=== PATIENT | female | born 1975 | race Caucasian/White ===

== ENCOUNTER → 2017-12-03 08:14 | Outpatient (CLI) | payer OTHER, SELFPAY ==
[2017-12-03 10:25] LABS: Absolute Lymphocyte Count 2.03 X10^3/ul (0.83-4.51); Absolute Neutrophil Count 4.5 X10^3/uL (2.0-7.7); Basophil# 0.04 X10^3/uL; Basophil% 0.6 % (0-1); Eosinophils% 1.4 % (0-5); Hematocrit 43.4 % (37-47); Hemoglobin 14.4 g/dl (12.0-15.0); Lymphocyte # 2.03 X10^3/ul (4.0); Lymphocyte % 28.6 % (19-41); Mean Corp Hgb Conc 33.2 g/gl (32-36); Mean Corpuscular Volume 99.3 fL (81-99); Mean Platelet Vol. 10.1 fl (6.2-12.0); Monocyte# 0.41 X10^3/uL; Monocyte% 5.8 % (0-10); Neutrophil # 4.52 X10^3/uL (2.7-7.7); Neutrophil % 63.5 % (47-70); Platelet Count 215 K/mm3 (150-450); RBC Distribution Width CV 13.1 % (11.6-14.6); RBC Distribution Width SD 47.2 fl (35.1-43.9); Red Blood Count 4.37 M/mm3 (4.2-5.4); White Blood Count 7.1 K/mm3 (4.4-11.0)
[2017-12-03 10:37] LABS: POSITIVE COUNT NO; POSITIVE DIFFERENTIAL NO; POSITIVE MORPHOLOGY NO
[2017-12-03 10:46] LABS: AST(SGOT) 13 U/L (15-37); Alanine Aminotransfer ALT/SGPT 19 U/L (13-56); Albumin, Serum 3.9 g/dL (3.2-5.0); Alkaline Phosphatase 51 U/L (45-117); Anion Gap 7 (5-15); BUN 7 mg/dL (7-18); BUN/Creat Ratio 8.2 RATIO (10-20); Bilirubin, Direct 0.09 mg/dL (0.00-0.30); Calcium,Total 8.9 mg/dL (8.5-10.1); Chloride 109 mmol/L (98-107); Creatinine, Serum 0.86 mg/dL (0.55-1.02); EST Glomerular Filtration Rate 78 mL/min (>60); Est Glom Filt Rate - Afr Amer 94 mL/min (>60); Globulin 2.9 g/dL (2.2-4.2); Glucose 73 mg/dL (74-106); Potassium 3.8 mmol/L (3.5-5.1); Protein, Total 6.8 g/dL (6.4-8.2); Sodium Level 143 mmol/L (136-145)
[2017-12-08 15:30] LABS: QNTFERON TB Ag Minus Nil Value < 0 IU/mL (.); QNTFERON TB Ag Value 0.09 IU/mL (.); QNTFERON TB Mitogen Value > 10.00 IU/mL (.); QNTFERON TB Nil Value 0.11 IU/mL (.)
[2017-12-09 10:27] LABS: Hep B Surface Antibodies Non Reactive (.); Hep C Antibodies <0.1 s/co ratio (0.0-0.9); QNTIFERON TB Gold Negative (Negative)
== END ==
DX: L40.0 Psoriasis vulgaris (principal); R23.3 Spontaneous ecchymoses; Z79.899 Other long term (current) drug therapy
CPT/HCPCS: 36415; 80048; 80076; 85025; 86480; 86706; 86803

== ENCOUNTER → 2018-09-09 09:23 | Outpatient (CLI) | payer OTHER, SELFPAY ==
[2018-09-09 09:57] LABS: Absolute Lymphocyte Count 1.69 X10^3/ul (0.83-4.51); Absolute Neutrophil Count 5.4 X10^3/uL (2.0-7.7); Basophil# 0.02 X10^3/uL; Basophil% 0.3 % (0-1); Eosinophils% 1.3 % (0-5); Hemoglobin 14.5 g/dl (12.0-15.0); Lymphocyte # 1.69 X10^3/ul (4.0); Lymphocyte % 21.9 % (19-41); Mean Corp Hgb Conc 34.5 g/gl (32-36); Mean Corpuscular Hgb 33.6 pg (27.0-32.0); Mean Corpuscular Volume 97.4 fL (81-99); Mean Platelet Vol. 9.2 fl (6.2-12.0); Monocyte# 0.44 X10^3/uL; Monocyte% 5.7 % (0-10); Neutrophil # 5.44 X10^3/uL (2.7-7.7); Neutrophil % 70.5 % (47-70); Platelet Count 175 K/mm3 (150-450); RBC Distribution Width CV 12.7 % (11.6-14.6); RBC Distribution Width SD 45.9 fl (35.1-43.9); Red Blood Count 4.31 M/mm3 (4.2-5.4); White Blood Count 7.7 K/mm3 (4.4-11.0)
[2018-09-09 09:58] LABS: POSITIVE COUNT NO; POSITIVE DIFFERENTIAL NO
[2018-09-09 09:59] LABS: POSITIVE MORPHOLOGY NO
[2018-09-09 10:16] LABS: AST(SGOT) 48 U/L (15-37); Alanine Aminotransfer ALT/SGPT 51 U/L (13-56); Alkaline Phosphatase 95 U/L (45-117); Anion Gap 6 (5-15); BUN 9 mg/dL (7-18); BUN/Creat Ratio 13.5 RATIO (10-20); Bilirubin, Direct 0.15 mg/dL (0.00-0.30); Calcium,Total 8.7 mg/dL (8.5-10.1); Chloride 110 mmol/L (98-107); Creatinine, Serum 0.67 mg/dL (0.55-1.02); EST Glomerular Filtration Rate 103 mL/min (>60); Est Glom Filt Rate - Afr Amer 125 mL/min (>60); Globulin 2.9 g/dL (2.2-4.2); Glucose 71 mg/dL (74-106); Potassium 3.8 mmol/L (3.5-5.1); Protein, Total 6.9 g/dL (6.4-8.2); Sodium Level 142 mmol/L (136-145)
[2018-09-12 03:07] LABS: HEPATITIS B SURFACE AG Negative (Negative); QNTFERON TB Mitogen Value > 10.00 IU/mL (.); QNTFERON TB Nil Value 0.11 IU/mL (.); QNTFERON TB2+ Ag Value 0.07 IU/mL (.)
[2018-09-12 14:34] LABS: Hep B Surface Antibodies Non Reactive (.); Hep C Antibodies <0.1 s/co ratio (0.0-0.9); Hepatitis B Core Ab Total Negative (Negative); QNTIFERON TB Positive Criteria Negative (Negative)
== END ==
DX: L40.0 Psoriasis vulgaris (principal); Z79.899 Other long term (current) drug therapy
CPT/HCPCS: 36415; 80048; 80076; 85025; 86480; 86704; 86706; 86803; 87340

== ENCOUNTER 2018-12-17 12:05 | Emergency (ER) | payer OTHER, SELFPAY ==
[2018-12-17 12:07] VITALS: BP 109/63; PULSE 63; RESP 18; TEMP 36.6; O2SAT 98; BMI 21.2
--- NOTE | 2018-12-17 12:58 | EKG12_ITS ---
Test Reason : GEN ILLNESS Blood Pressure : / mmHG Vent. Rate : 050 BPM Atrial Rate : 050 BPM P-R Int : 128 ms QRS Dur : 074 ms QT Int : 454 ms P-R-T Axes : 059 061 058 degrees QTc Int : 413 ms Sinus bradycardia Otherwise normal ECG Confirmed by BASILIO QUINTERO, HETAL ([id number]), writer editor LISA AN ([id number]) on 12/18/2018 12:10:42 PM Referred By: ROSMERY Confirmed By:HETAL RICHMOND MD
--- NOTE | 2018-12-17 12:59 | ED.DCSUM_ITS ---
History of Present Illness Chief Complaint: General Illness Detail of Chief Complaint: Swelling Informant: Patient, Family Onset: Weeks - 1 Context: Gradual Onset Timing: Continuous Quality: Swelling Location: Hands, feet, tongue, face Current Severity: Moderate Maximum Severity: Moderate Worsened by: Unknown Relieved by: Unknown, nothing Associated Symptoms: None Narrative: Patient presents initially very frustrated, saying that this is the third ER she has been to for this problem. She states she has had swollen fingers, as well as areas on her feet close to her ankles, and then yesterday started having some involvement of her tongue and face. She has no trouble breathing or swallowing, other than chronic dyspnea related to her COPD which she states is no worse than usual. She states that due to the swelling in her fingers, she cut her rings off today to keep them from strangling her circulation. She has psoriasis, and recently was started on Stelara, she had the initial injection about 6 weeks ago, and the second injection 1 week ago just prior to the onset of the symptoms. She had no side effects after the initial injection. She discussed with her doctor and pharmacist and they do not think she is having side effects or a reaction to the Stelara at all. She has no history of any heart problems or liver problems. She has had arthritis/arthralgias in her elbows, ankles, knuckles in the past but never diagnosed with psoriatic arthritis. She is on no other medications. She denies any fevers, lightheadedness, or other systemic symptoms. She is very frustrated and wants answers which she has not had at the other 2 emergency departments. - Past Medical History (1) COPD (chronic obstructive pulmonary disease) Status: Chronic (2) Psoriasis Status: Chronic Past Medical History - Allergies and Home Meds Allergies/Adverse Reactions: Allergies acetaminophen [From Vicodin] Adverse Reaction (Verified 12/17/18 12:07) Other BLURRY VISION codeine Adverse Reaction (Verified 12/17/18 12:07) Other HYPES HER UP hydrocodone [From Vicodin] Adverse Reaction (Verified 12/17/18 12:07) Other BLURRY VISION Primary Care Physician: Care Physician,No Primary [Primary Care Provider] - Smoking Status: Former smoker - Just recently quit Drugs: None Review of Systems General: Denies: Chills, Fever, Sweats Eyes: Denies: Visual changes - bilaterally, Diplopia ENT: Denies: Rhinorrhea, Sore throat Cardiovascular: Denies: Chest pain, Palpitations Respiratory: Reports: Dyspnea - Chronic related to COPD, not present today, Cough - Chronic, unchanged. Denies: Sputum, Dyspnea on exertion, Orthopnea Gastrointestinal: Denies: Abdominal pain, Nausea, Vomiting, Diarrhea, Melena, Hematochezia Genitourinary: Denies: Dysuria, Hematuria, Frequency Musculoskeletal: Reports: Swelling. Denies: Back pain, Extremity Pain Skin: Denies: Rash, Wounds Neurological: Denies: Headache, Weakness, Numbness Physical Exam Vital Signs/Narrative: Vital Signs Temp Pulse Resp BP Pulse Ox 12/17/18 12:07 97.9 F 63 18 109/63 98 Inital Vital Signs reviewed: Yes General: Well nourished, Well developed, No Acute Distress Head: Normocephalic, Atraumatic Eyes: Perrl, EOMI ENT: Moist mucous membranes, No rhinorrhea, - - No stridor or hoarseness. Normal-appearing tongue and oral mucosa, no trismus. No hot potato voice. Speaking normally while lying supine. Neck: Supple, Nontender, No lymphadenopathy, No JVD Cardiovascular: Regular rate, Regular rhythm, No murmurs, Normal S1, Normal S2 Respiratory: No distress, CTA bilaterally, Chest nontender Abdomen: Soft, Nontender, Nondistended, Normal bowel sounds Back: Nontender, Normal Inspection Extremities: Nontender, No edema - I see no objective edema. Her tongue is normal. It does not appear asymmetric but she states the swelling feels like it is only on one side. She sticks it out in the midline. , - - No Heberden's or Cherie's nodes. Skin: Normal color, No rash, No Trauma Neurological: Alert, Oriented x3, Cranial nerves II-XII grossly intact, Normal Strength, Normal Sensation Psychological: Normal affect, Normal Mood Diagnostic/Tx/Re-eval Laboratory Tests 12/17/18 12/17/18 12/17/18 Range/Units 13:15 13:15 13:15 WBC (4.4-11.0) K/mm3 RBC (4.2-5.4) M/mm3 Hgb (12.0-15.0) g/dl Hct (37-47) % MCV (81-99) fL MCH (27.0-32.0) pg MCHC (32-36) g/gl RDW (11.6-14.6) % RDW Differential (35.1-43.9) fl Plt Count (150-450) K/mm3 MPV (6.2-12.0) fl Immature Gran % (Auto) (0.0-0.9) % Neut % (Auto) (47-70) % Lymph % (Auto) (19-41) % Sharkey % (Auto) (0-10) % Eos % (Auto) (0-5) % Baso % (Auto) (0-1) % Absolute Neuts (auto) (2.0-7.7) X10^3/uL Absolute Lymphs (auto) (0.83-4.51) X10^3/ul Total Counted PT 12.5 (11.7-14.9) SECONDS INR 1.0 Sodium 139 (136-145) mmol/L Potassium 4.0 (3.5-5.1) mmol/L Chloride 105 (98-107) mmol/L Carbon Dioxide 28.0 (21.0-32.0) mmol/L Anion Gap 6 (5-15) BUN 11 (7-18) mg/dL Creatinine 0.76 (0.55-1.02) mg/dL Estim Creat Clear Calc 80.58 ml/min Est GFR (MDRD) Af Amer 109 (>60) mL/min Est GFR (MDRD) Non-Af 90 (>60) mL/min BUN/Creatinine Ratio 14.6 (10-20) RATIO Glucose 79 (74-106) mg/dL Calcium 9.3 (8.5-10.1) mg/dL Total Bilirubin 1.00 (0.20-1.00) mg/dL AST 25 (15-37) U/L ALT 40 (13-56) U/L Alkaline Phosphatase 86 (45-117) U/L Total Protein 7.1 (6.4-8.2) g/dL Albumin 4.2 (3.2-5.0) g/dL Globulin 2.9 (2.2-4.2) g/dL Albumin/Globulin Ratio 1.4 (0.9-2.4) RATIO TSH 1.88 (0.358-3.74) uIU/mL Urine Color Yellow (Yellow) Urine Clarity Clear (Clear) Urine pH 7.0 (5.0 - 8.0) Ur Specific [place] 1.005 (1.002-1.030) Urine Protein Negative (Negative) mg/dl Urine Glucose (UA) Normal (Normal) mg/dl Urine Ketones Negative (Negative) mg/dl Urine Occult Blood Negative (Negative) /ul Urine Nitrite Negative (Negative) Urine Bilirubin Negative (Negative) mg/dL Urine Urobilinogen Normal (Normal) mg/dl Ur Leukocyte Esterase Negative (Negative) /ul Urine RBC 0 SEEN (0-5) /hpf Urine WBC 0 SEEN (0-5) /hpf Ur Squamous Epith Cells 0 SEEN (5-10) /hpf Urine Bacteria 0 SEEN (None Seen) /hpf Urine Mucus 0 SEEN (<or=2+) /hpf 12/17/18 Range/Units 13:15 WBC 8.4 (4.4-11.0) K/mm3 RBC 4.28 (4.2-5.4) M/mm3 Hgb 14.1 (12.0-15.0) g/dl Hct 40.9 (37-47) % MCV 95.6 (81-99) fL MCH 32.9 H (27.0-32.0) pg MCHC 34.5 (32-36) g/gl RDW 11.8 (11.6-14.6) % RDW Differential 40.6 (35.1-43.9) fl Plt Count 222 (150-450) K/mm3 MPV 9.2 (6.2-12.0) fl Immature Gran % (Auto) 0.200 (0.0-0.9) % Neut % (Auto) 58.0 (47-70) % Lymph % (Auto) 31.6 (19-41) % Sharkey % (Auto) 7.7 (0-10) % Eos % (Auto) 2.0 (0-5) % Baso % (Auto) 0.5 (0-1) % Absolute Neuts (auto) 4.9 (2.0-7.7) X10^3/uL Absolute Lymphs (auto) 2.67 (0.83-4.51) X10^3/ul Total Counted Not Reportable PT (11.7-14.9) SECONDS INR Sodium (136-145) mmol/L Potassium (3.5-5.1) mmol/L Chloride (98-107) mmol/L Carbon Dioxide (21.0-32.0) mmol/L Anion Gap (5-15) BUN (7-18) mg/dL Creatinine (0.55-1.02) mg/dL Estim Creat Clear Calc ml/min Est GFR (MDRD) Af Amer (>60) mL/min Est GFR (MDRD) Non-Af (>60) mL/min BUN/Creatinine Ratio (10-20) RATIO Glucose (74-106) mg/dL Calcium (8.5-10.1) mg/dL Total Bilirubin (0.20-1.00) mg/dL AST (15-37) U/L ALT (13-56) U/L Alkaline Phosphatase (45-117) U/L Total Protein (6.4-8.2) g/dL Albumin (3.2-5.0) g/dL Globulin (2.2-4.2) g/dL Albumin/Globulin Ratio (0.9-2.4) RATIO TSH (0.358-3.74) uIU/mL Urine Color (Yellow) Urine Clarity (Clear) Urine pH (5.0 - 8.0) Ur Specific [place] (1.002-1.030) Urine Protein (Negative) mg/dl Urine Glucose (UA) (Normal) mg/dl Urine Ketones (Negative) mg/dl Urine Occult Blood (Negative) /ul Urine Nitrite (Negative) Urine Bilirubin (Negative) mg/dL Urine Urobilinogen (Normal) mg/dl Ur Leukocyte Esterase (Negative) /ul Urine RBC (0-5) /hpf Urine WBC (0-5) /hpf Ur Squamous Epith Cells (5-10) /hpf Urine Bacteria (None Seen) /hpf Urine Mucus (<or=2+) /hpf - Medical Decision Making Liver enzymes, renal function, all normal. No proteinuria. TSH normal. EKG normal and lungs clear with no JVD or objective pedal edema. I reassured the patient with regards to her heart, liver, kidneys at this time. I wonder if she is having swelling at joints in relation to some type of rheumatologic issue. She certainly is not anaphylactic. There is no objective tongue edema, if it gets worse I recommended she come immediately to the emergency department. However right now she is in no life-threatening scenario with regards to those symptoms. I discussed trying a short course of prednisone which will be more likely to help then to cause more swelling since we will limit it to 5 days total. She is amenable to that and following up. ED Disposition - Plan for ED Patient: Disposition: Home or Assisted Living Diagnosis: Arthralgia, Swelling Instructions: What Is Arthritis?, METHYLPREDNISOLONE, Oral Prescriptions: predniSONE tablet 40 mg PO DAILY #10 tab Prescription Printed Referrals: Doctor,Your [STAFF PHYSICIAN] -
[2018-12-17 13:25] LABS: Absolute Lymphocyte Count 2.67 X10^3/ul (0.83-4.51); Absolute Neutrophil Count 4.9 X10^3/uL (2.0-7.7); Bacteria 0 SEEN /hpf (None Seen); Basophil# 0.04 X10^3/uL; Basophil% 0.5 % (0-1); Eosinophil# 0.17 X10^3/uL; Hematocrit 40.9 % (37-47); Hemoglobin 14.1 g/dl (12.0-15.0); Lymphocyte # 2.67 X10^3/ul (4.0); Lymphocyte % 31.6 % (19-41); Mean Corp Hgb Conc 34.5 g/gl (32-36); Mean Corpuscular Hgb 32.9 pg (27.0-32.0); Mean Corpuscular Volume 95.6 fL (81-99); Mean Platelet Vol. 9.2 fl (6.2-12.0); Monocyte# 0.65 X10^3/uL; Monocyte% 7.7 % (0-10); Mucous, Urine 0 SEEN /hpf (<or=2+); Neutrophil # 4.89 X10^3/uL (2.7-7.7); Platelet Count 222 K/mm3 (150-450); RBC Distribution Width CV 11.8 % (11.6-14.6); RBC Distribution Width SD 40.6 fl (35.1-43.9); Red Blood Cells-Urine 0 SEEN /hpf (0-5); Red Blood Count 4.28 M/mm3 (4.2-5.4); Squamous Epithelial Cells - UA 0 SEEN /hpf (5-10); White Blood Cells 0 SEEN /hpf (0-5); White Blood Count 8.4 K/mm3 (4.4-11.0)
[2018-12-17 13:26] LABS: Color, Urine Yellow (Yellow); Glucose, Dipstick Normal (Normal); Ketone-Dipstick Negative (Negative); Leukocyte Esterase-Dipstick Negative /ul (Negative); Nitrite-Dipstick Negative (Negative); Occult Blood-Urine Negative /ul (Negative); Protein-Dipstick Negative (Negative); Specific Gravity, Urine 1.005 (1.002-1.030); Urine Bilirubin Dipstick Negative (Negative); Urine Clarity Clear (Clear); Urine Urobilinogen Normal (Normal)
[2018-12-17 13:29] LABS: POSITIVE COUNT NO; POSITIVE DIFFERENTIAL NO; POSITIVE MORPHOLOGY NO
[2018-12-17 13:35] LABS: Prothrombin Time (Protime)PT. 12.5 SECONDS (11.7-14.9)
[2018-12-17 13:53] LABS: ALB/GLOB Ratio 1.4 RATIO (0.9-2.4); AST(SGOT) 25 U/L (15-37); Alanine Aminotransfer ALT/SGPT 40 U/L (13-56); Albumin, Serum 4.2 g/dL (3.2-5.0); Alkaline Phosphatase 86 U/L (45-117); Anion Gap 6 (5-15); BUN 11 mg/dL (7-18); BUN/Creat Ratio 14.6 RATIO (10-20); Calcium,Total 9.3 mg/dL (8.5-10.1); Chloride 105 mmol/L (98-107); Creatinine, Serum 0.76 mg/dL (0.55-1.02); EST Glomerular Filtration Rate 90 mL/min (>60); Est Glom Filt Rate - Afr Amer 109 mL/min (>60); Estimated Creatinine Clearance 80.58 ml/min; Globulin 2.9 g/dL (2.2-4.2); Glucose 79 mg/dL (74-106); Protein, Total 7.1 g/dL (6.4-8.2); Sodium Level 139 mmol/L (136-145); Thyroid Stim Hormone (TSH) 1.88 uIU/mL (0.358-3.74)
--- NOTE | 2018-12-17 14:14 | ED.DEP ---
ED Disposition - Plan for ED Patient: Disposition: Home or Assisted Living Diagnosis: Arthralgia, Swelling Instructions: What Is Arthritis?, METHYLPREDNISOLONE, Oral Prescriptions: predniSONE tablet 40 mg PO DAILY #10 tab Prescription Printed Referrals: Socrates Valiente MD [STAFF PHYSICIAN] - (call for appt)
[2018-12-17 14:19] VITALS: BP 94/60; PULSE 57; RESP 16; O2SAT 99
== END 2018-12-17 14:20 | disposition home or self-care (01) ==
PROVIDERS: Emergency Provider Emergency Medicine
DX: M25.50 Pain in unspecified joint (principal); M79.89 Other specified soft tissue disorders; Z87.891 Personal history of nicotine dependence; Z88.5 Allergy status to narcotic agent; J44.9 Chronic obstructive pulmonary disease, unspecified; L40.9 Psoriasis, unspecified
CPT/HCPCS: 36415; 80053; 81001; 84443; 85025; 85610; 93005; 99282

== ENCOUNTER → 2019-04-26 14:18 | Outpatient (CLI) | payer OTHER, SELFPAY ==
--- NOTE | 2019-04-26 14:30 | RAD_ITS ---
STUDY: X-RAY - PELVIS REASON FOR EXAM: Female, 43 years old. Pain. TECHNIQUE: One view of the pelvis was obtained. COMPARISON: None. FINDINGS: There is a non-specific bowel gas pattern. Normal visualized soft tissue structures. Radiopaque structures projecting over the pelvis most likely postsurgical. There is narrowing with cortical sclerosis and osteophyte formation of the sacroiliac joint consistent with degenerative osteoarthritic changes. Normal visualized bilateral superior and inferior pubic rami. There are degenerative changes of the pubic symphysis with articular narrowing and sclerosis. Normal ischial tuberosities. Normal visualized right femoral head. Normal right acetabulum. There is mild articular joint space narrowing of the right hip. Normal visualized left femoral head. There is mild osteoarthritic spur formation of the left acetabular rim. There is mild articular joint space narrowing of the left hip. RAD/Pelvis 1 or 2 Views IMPRESSION: Degenerative disease as described above. Electronically Signed: Yamilex Hitchcock MD at 2:46 EST , Service support ,
[2019-04-26 15:56] LABS: Erythrocyte Sedimentation Rate < 1 mm/hr (0-20)
[2019-04-26 15:58] LABS: Absolute Lymphocyte Count 2.71 X10^3/uL (0.83-4.51); Absolute Neutrophil Count 4.7 X10^3/uL (2.0-7.7); Basophil# 0.07 X10^3/uL; Basophil% 0.9 % (0-1); Eosinophil# 0.18 X10^3/uL; Eosinophils% 2.2 % (0-5); Hematocrit 42.2 % (37-47); Hemoglobin 14.4 g/dL (12.0-15.0); Lymphocyte # 2.71 X10^3/ul (4.0); Lymphocyte % 33.6 % (19-41); Mean Corp Hgb Conc 34.1 g/dL (32-36); Mean Corpuscular Hgb 33.3 pg (27.0-32.0); Mean Corpuscular Volume 97.7 fL (81-99); Mean Platelet Vol. 9.6 fl (6.2-12.0); Monocyte# 0.39 X10^3/uL; Monocyte% 4.8 % (0-10); NRBC Flagged by Analyzer 0 % (0-5); Neutrophil # 4.69 X10^3/uL (2.7-7.7); Neutrophil % 58.1 % (47-70); Platelet Count 248 K/mm3 (150-450); RBC Distribution Width CV 12.3 % (11.6-14.6); RBC Distribution Width SD 44.5 fl (35.1-43.9); Red Blood Count 4.32 M/mm3 (4.2-5.4); White Blood Count 8.1 K/mm3 (4.4-11.0)
[2019-04-26 16:06] LABS: ALB/GLOB Ratio 1.3 RATIO (0.9-2.4); AST(SGOT) 16 U/L (15-37); Alanine Aminotransfer ALT/SGPT 25 U/L (13-56); Albumin, Serum 4.3 g/dL (3.2-5.0); Alkaline Phosphatase 102 U/L (45-117); Anion Gap 8 (5-15); BUN 11 mg/dL (7-18); BUN/Creat Ratio 14.4 RATIO (10-20); CRP < 2.90 mg/L (0.0-3.0); Calcium,Total 9.1 mg/dL (8.5-10.1); Chloride 107 mmol/L (98-107); Creatinine, Serum 0.77 mg/dL (0.55-1.02); EST Glomerular Filtration Rate 88 mL/min (>60); Est Glom Filt Rate - Afr Amer 107 mL/min (>60); Globulin 3.2 g/dL (2.2-4.2); Glucose 101 mg/dL (74-106); Potassium 3.6 mmol/L (3.5-5.1); Protein, Total 7.5 g/dL (6.4-8.2); Rheumatoid Factor < 10.0 IU/mL (<15); Sodium Level 140 mmol/L (136-145)
[2019-04-27 09:36] LABS: Hepatitis B Surface Antibody Non-Reactive; Hepatitis B Surface Antigen Non-Reactive (Nonreactive); Hepatitis C Antibody Non-Reactive (Nonreactive)
[2019-04-28 15:19] LABS: ANTINUCLEAR ANTIBODIES DIRECT Negative (Negative)
[2019-05-03 15:08] LABS: QNTFERON TB Mitogen Value > 10.00 IU/mL (.); QNTFERON TB Nil Value 0.13 IU/mL (.); QNTFERON TB1+ Ag Value 0.09 IU/mL (.); QNTFERON TB2+ Ag Value 0.03 IU/mL (.)
[2019-05-03 22:41] LABS: CCP IgG Antibodies 6 units (0-19); HLA B27 Negative (.); Hepatitis B Core AB IgM Negative (Negative); QNTIFERON TB Positive Criteria Negative (Negative)
== END ==
PROVIDERS: Referring Provider Internal Medicine Rheumatology; Visit Provider Internal Medicine Rheumatology
DX: L40.59 Other psoriatic arthropathy (principal); L40.8 Other psoriasis; Q66.71 Congenital pes cavus, right foot; F32.9 Major depressive disorder, single episode, unspecified; J44.9 Chronic obstructive pulmonary disease, unspecified
CPT/HCPCS: 36415; 72170; 80053; 81374; 85025; 85652; 86038; 86140; 86200; 86431; 86480; 86705; 86706; 86803; 87340

== ENCOUNTER → 2019-06-28 14:04 | Outpatient (CLI) | payer OTHER, SELFPAY ==
[2019-06-28 15:24] LABS: Absolute Lymphocyte Count 2.31 X10^3/uL (0.83-4.51); Basophil# 0.08 X10^3/uL; Eosinophil# 0.08 X10^3/uL; Hematocrit 43.6 % (37-47); Hemoglobin 14.6 g/dL (12.0-15.0); Lymphocyte # 2.31 X10^3/ul (4.0); Lymphocyte % 28.5 % (19-41); Mean Corp Hgb Conc 33.5 g/dL (32-36); Mean Corpuscular Hgb 33.6 pg (27.0-32.0); Mean Corpuscular Volume 100.2 fL (81-99); Mean Platelet Vol. 9.2 fl (6.2-12.0); Monocyte# 0.54 X10^3/uL; Monocyte% 6.7 % (0-10); NRBC Flagged by Analyzer 0 % (0-5); Neutrophil % 61.7 % (47-70); Platelet Count 248 K/mm3 (150-450); RBC Distribution Width CV 12.9 % (11.6-14.6); RBC Distribution Width SD 47.8 fl (35.1-43.9); Red Blood Count 4.35 M/mm3 (4.2-5.4); White Blood Count 8.1 K/mm3 (4.4-11.0)
[2019-06-28 15:40] LABS: Erythrocyte Sedimentation Rate 2 mm/hr (0-20)
[2019-06-28 16:26] LABS: CRP < 2.90 mg/L (0.0-3.0)
[2019-07-02 03:06] LABS: Immunoglobulin A 64 mg/dL (87-352); Immunoglobulin E 10 IU/mL (6-495); Immunoglobulin G 413 mg/dL (700-1600)
[2019-07-02 09:21] LABS: Angiotensin Convert Enzyme 42 U/L (14-82); Immunoglobulin M 19 mg/dL (26-217)
== END ==
PROVIDERS: PCP Nurse Practitioner Family; Referring Provider Internal Medicine Pulmonary Disease; Visit Provider Internal Medicine Pulmonary Disease
DX: J44.9 Chronic obstructive pulmonary disease, unspecified (principal); R09.02 Hypoxemia
CPT/HCPCS: 36415; 82164; 82784; 82785; 85025; 85652; 86140

== ENCOUNTER → 2019-07-24 | Outpatient (CLI) | payer OTHER, SELFPAY ==
[2019-07-26 14:07] LABS: IgG, Quant 401 mg/dL (700-1600); Immunoglobulin G, Subclass 1 183 mg/dL (248-810); Immunoglobulin G, Subclass 2 133 mg/dL (130-555); Immunoglobulin G, Subclass 3 16 mg/dL (15-102)
[2019-07-26 14:45] LABS: Immunoglobulin G, Subclass 4 4 mg/dL (2-96)
== END | disposition home or self-care (01) ==
LOC: LAB 07:19
PROVIDERS: PCP Nurse Practitioner Family; Referring Provider Internal Medicine Pulmonary Disease; Visit Provider Internal Medicine Pulmonary Disease
DX: J44.9 Chronic obstructive pulmonary disease, unspecified (principal)
CPT/HCPCS: 36415; 82784; 82787

== ENCOUNTER → 2020-02-02 14:47 | Outpatient (CLI) | payer OTHER, SELFPAY ==
--- NOTE | 2020-02-02 14:50 | ECHOD_ITS ---
Reason For Study: Dyspnea Procedure This was a 2D Doppler, Color Flow transthoracic echocardiogram. Exam performed in department. Left Ventricle Normal size and thickness. The estimated ejection fraction is 65 %. Stage 1 diastolic dysfunction. No regional wall motion abnormalities noted. Right Ventricle Normal size and thickness. Normal systolic function. Atria Normal left atrium. Normal right atrium. Normal atrial septum. Mitral Valve The mitral valve is structurally normal. No prolapse or stenosis seen. Trivial mitral valve insufficiency. Tricuspid Valve Normal tricuspid valve. Trivial tricuspid valve insufficiency. Right ventricular systolic pressure estimated to be 23 mmHg. Aortic Valve Normal aortic valve. Trisinus/trileaflet aortic valve. Pulmonic Valve Normal pulmonic valve. Great Vessels Normal aortic root. Normal arch. Normal inferior vena cava. Inferior vena cava collapse with sniff. Pericardium/Pleural No pericardial effusion. MMode/2D Measurements & Calculations LVIDd: 3.9 cm IVSd: 0.94 cm Ao root diam: 2.3 cm LVIDs: 2.5 cm LVPWd: 0.97 cm RVDd: 2.4 cm FS: 37.7 % LAV(MOD-bp): 18.8 ml LVAd ap4: 18.5 cm2 SV(MOD-sp4): 25.6 ml LAV(MOD-bp) Indexed: 11.2 ml/m2 EDV(MOD-sp4): 42.0 ml LAV(MOD-sp2): 19.5 ml EDV(sp4-el): 42.5 ml LAV(MOD-sp4): 15.5 ml LVAs ap4: 10.3 cm2 ESV(MOD-sp4): 16.4 ml ESV(sp4-el): 16.3 ml EF(MOD-sp4): 60.9 % EF(sp4-el): 61.6 % SV(sp4-el): 26.2 ml LA A4 area: 9.3 cm2 LA dimension(2D): 2.6 cm RA A4 area: 8.2 cm2 Doppler Measurements & Calculations MV E max simba: 58.5 cm/sec Lat Peak E' Simba: 12.0 cm/sec Med Peak E' Simba: 7.7 cm/sec MV A max simba: 72.1 cm/sec E/E' lat: 4.9 E/E' med: 7.6 MV E/A: 0.81 Ao V2 max: 114.5 cm/sec LV V1 max: 100.4 cm/sec PA V2 max: 77.0 cm/sec Ao max P.2 mmHg LV V1 max P.0 mmHg Ao V2 mean: 81.4 cm/sec Ao mean P.8 mmHg Ao V2 VTI: 18.6 cm TR max simba: 213.2 cm/sec TR max P.2 mmHg Interpretation Summary The estimated ejection fraction is 65 %. Stage 1 diastolic dysfunction. Trivial mitral valve insufficiency. Trivial tricuspid valve insufficiency. Right ventricular systolic pressure estimated to be 23 mmHg. There is no comparison study available. Ordering Physician: Ted Ramirez Referring Physician: Nando Sawyer Performed By: Roxane Wisdom RDCS, RVT
== END ==
PROVIDERS: PCP Student in an Organized Health Care Education/Training Program; Referring Provider Internal Medicine Pulmonary Disease; Visit Provider Internal Medicine Pulmonary Disease
DX: R06.00 Dyspnea, unspecified (principal)
CPT/HCPCS: 93306

== ENCOUNTER → 2020-02-07 | Outpatient (CLI) | payer OTHER, SELFPAY ==
--- NOTE | 2020-02-07 07:48 | CT_ITS ---
STUDY: CTA CHEST REASON FOR EXAM: Female, 44 years old. DYSPNEA, COPD, FLU SYMPTOMS X 2 MONTHS RADIATION DOSAGE (If Supplied By Facility): CTDIvol = ( 6.82 ) mGy, DLP = ( 153.46 ) mGycm TECHNIQUE: The examination was performed with the intravenous administration of IV 100mL Isovue-370. Post-processing of the angiographic images was performed, with multiplanar reformation and 3D reconstruction. Individualized dose optimization techniques were used for this CT. COMPARISON: None. FINDINGS: Small benign-appearing bilateral axillary lymph nodes. Normal enhancement of the main pulmonary artery and right and left pulmonary arteries. Normal enhancement of the bilateral peripheral pulmonary arteries. There is no demonstrated pulmonary embolism. Normal thoracic aorta and visualized great vessels. There is no demonstrated aortic dissection. Normal heart and pericardium. Normal mediastinum. Normal hilar regions. Normal visualized trachea and bronchi. The lungs are well expanded. Normal pulmonary parenchyma. Normal pleura. Normal chest wall structures. Normal osseous structures. Normal visualized upper abdomen. CT/CTA Chest W/WO Contrast IMPRESSION: Normal CTA chest examination, without a demonstrated pulmonary embolism or arterial dissection. Electronically Signed: Shiva Soliz, at 9:01 EDT , Service support ,
== END | disposition home or self-care (01) ==
LOC: CT 07:47
PROVIDERS: PCP Nurse Practitioner Family; Referring Provider Internal Medicine Pulmonary Disease; Visit Provider Internal Medicine Pulmonary Disease
DX: J44.9 Chronic obstructive pulmonary disease, unspecified (principal); R06.00 Dyspnea, unspecified
CPT/HCPCS: 71275; Q9967

== ENCOUNTER → 2020-10-18 16:34 | Outpatient (CLI) | payer OTHER, SELFPAY | PROVIDERS: PCP Student in an Organized Health Care Education/Training Program; Visit Provider Internal Medicine Pulmonary Disease | DX: R05 Cough (principal); R06.00 Dyspnea, unspecified; R51.9 Headache, unspecified | CPT/HCPCS: 87635; C9803; U0002 ==

== ENCOUNTER → 2021-05-08 12:50 | Outpatient (CLI) | payer OTHER, SELFPAY | PROVIDERS: PCP Student in an Organized Health Care Education/Training Program; Referring Provider Internal Medicine Pulmonary Disease; Visit Provider Internal Medicine Pulmonary Disease | DX: R05.9 Cough, unspecified (principal); R50.9 Fever, unspecified; R52 Pain, unspecified | CPT/HCPCS: 87635; C9803; U0005; U0003 ==

== ENCOUNTER → 2021-05-10 12:11 | Outpatient (CLI) | payer OTHER, SELFPAY | PROVIDERS: PCP Student in an Organized Health Care Education/Training Program; Referring Provider Internal Medicine Pulmonary Disease; Visit Provider Internal Medicine Pulmonary Disease | DX: R05.9 Cough, unspecified (principal); R52 Pain, unspecified | CPT/HCPCS: 87635; C9803; U0005; U0003 ==

== ENCOUNTER 2021-05-15 09:57 | Emergency (ER) | payer OTHER, SELFPAY ==
[2021-05-15 09:58] VITALS: BP 131/74; PULSE 86; RESP 18; TEMP 36; O2SAT 98; BMI 21.8
--- NOTE | 2021-05-15 10:21 | EKG12_ITS ---
Test Reason : SOB Blood Pressure : / mmHG Vent. Rate : 056 BPM Atrial Rate : 056 BPM P-R Int : 132 ms QRS Dur : 080 ms QT Int : 408 ms P-R-T Axes : 073 070 085 degrees QTc Int : 393 ms Sinus bradycardia with sinus arrhythmia Otherwise normal ECG Confirmed by JAVIER QUINTERO, ENRIQUE ([id number]), television news video editor HEMALATHA WILLIAM ([id number]) on 05/17/2021 11:38:52 AM Referred By: NEEL Confirmed By:ENRIQUE HERRERA MD
[2021-05-15] MEDS: Ipratropium/Albuterol Sulfate 3 ML AMPUL.NEB INHALATION (10:42)
--- NOTE | 2021-05-15 10:44 | EDS_ITS ---
HPI History of Present Illness Chief Complaint: Shortness of Breath Narrative Narrative: Patient presenting for evaluation secondary to chest pain and shortness of breath. Patient has a underlying history of psoriasis and COPD. Patient states that for a week and a days she has been dealing with chest tightness as well as shortness of breath. She reports that she has a cough that is minimally productive of sputum. She reports that the whole thing started with a fever, and she does have some persistent body aches associated with it. Patient denies any GI symptoms. Patient reports that throughout the course of the week she is actually been tested #3 times for coronavirus and it is all turned out negative. She reports that she called primary care on Friday went on a course of prednisone and Augmentin and is not having improvement in her symptoms. Patient denies any DVT or PE risk factors. Patient does report that its been associated with a headache and sinus pressure. She denies any sick contacts. Review of systems otherwise negative. [facility] Medical History (Updated 05/15/21 @ 11:19 by Jesica Yee) Fibromyalgia Scoliosis Home Medications prednisone 40 mg PO DAILY #10 tab 12/17/18 [Rx Last Taken Unknown] secukinumab 1 dose SQ DAILY 12/17/18 [History Last Taken Unknown] ustekinumab 1 dose SQ DAILY 12/17/18 [History Last Taken Unknown] prednisone 10 mg PO UD #33 tab 05/15/21 [Rx Last Taken Unknown] Allergy/AdvReac Type Severity Reaction Status Date / Time acetaminophen [From Vicodin] AdvReac Other Verified 05/15/21 10:01 codeine AdvReac Other Verified 05/15/21 10:01 hydrocodone [From Vicodin] AdvReac Other Verified 05/15/21 10:01 Social History Smoking Status: Former smoker ROS ROS ED Constitutional Constitutional ED: Reports chills and fever(s) ENT ENT ED: Denies rhinorrhea Cardiovascular Cardiovascular: Reports chest pain Respiratory/Chest Respiratory/Chest: Reports cough, dyspnea and sputum Gastrointestinal Gastrointestinal: Denies abdominal pain, diarrhea, nausea or vomiting Genitourinary Genitourinary ED: Denies dysuria or hematuria Musculoskeletal Musculoskeletal: Denies back pain Integumentary Denies rash Neurologic Neurologic: Denies paresthesias or weakness Psychiatric Psychiatric: Denies depression Endocrine Endocrinology: Denies fatigue Allergic/Immunologic Allergic/Immunologic ED: Denies urticaria EXAM Physical Exam Const Vital Signs: 05/15/21 09:58 05/15/21 10:21 05/15/21 10:45 Temperature 96.8 F L Temperature Source Temporal Pulse Rate 86 78 Respiratory Rate 18 18 Respiratory Effort Respiratory Depth Respiratory Pattern Blood Pressure 131/74 H Blood Pressure Mean 93 Pulse Ox 98 Oxygen Delivery Method Room Air Room Air 05/15/21 10:46 05/15/21 11:19 Temperature Temperature Source Pulse Rate 901 H Respiratory Rate 6 L Respiratory Effort Normal Respiratory Depth Normal Respiratory Pattern Normal Blood Pressure Blood Pressure Mean Pulse Ox 99 Oxygen Delivery Method Room Air Room Air Positive well nourished and well developed General Appearance ED: well developed and NAD HEENT Reports moist mucous membranes Negative for trauma or tenderness Eyes EOMs intact bilaterally Neck no lymphadenopathy, supple and no JVD Chest Wall inspection of chest normal Resp normal respiratory effort and clear to auscultation bilaterally Cardio regular rate, regular rhythm, no murmurs and peripheral pulses 2+ throughout GI normal to inspection, nondistended, normoactive bowel sounds, non-tender and no masses Palpation: soft Back/Spine normal to inspection Extremity normal to inspection General Extremety ED: Negative for tenderness Neuro oriented x3 and no sensory deficits noted Sensorium / Orientation: alert Motor Exam: strength 5/5 throughout Psych mental status grossly normal Skin no rashes or lesions noted MDM MDM MDM Narrative Medical decision making narrative: Patient presented for evaluation secondary to chest tightness. She was noted to be wheezing on exam, she was given a breathing treatment in the emergency department. CBC was unremarkable, chemistry shows mildly low potassium at 3.2 troponin was negative at 4. EKG was found to be unremarkable chest x-ray by my personal review as well as radiology also noted to be negative. Patient is capital PE RC negative I do not believe that there is indication for work-up of pulmonary embolism. In total the patient has a negative cardiac work-up with negative radiographs and is cont inuing to have chest tightness and wheezing despite a course of Augmentin and a burst of prednisone. I believe that this likely is still a presentation of bronchitis and COPD exacerbation. Patient be placed on a prednisone taper. Patient was recommended to follow-up with primary care. Lab Data Labs: Laboratory Results - last 24 hr 05/15/21 05/15/21 10:40 10:40 WBC 10.2 RBC 4.43 Hgb 14.4 Hct 42.5 MCV 95.9 MCH 32.5 H MCHC 33.9 RDW Std Deviation 42.5 RDW Coeff of [place] 12.1 Plt Count 258 MPV 9.0 Immature Gran % (Auto) 0.700 Neut % (Auto) 48.0 Lymph % (Auto) 44.6 H [place] % (Auto) 4.7 Eos % (Auto) 1.3 Baso % (Auto) 0.7 Absolute Neuts (auto) 4.9 Absolute Lymphs (auto) 4.54 H Nucleated RBC % 0 Sodium 142 Potassium 3.2 L Chloride 106 Carbon Dioxide 29.0 Anion Gap 7 BUN 13 Creatinine 0.77 Estim Creat Clear Calc 81.35 Est GFR (MDRD) Af Amer 105 Est GFR (MDRD) Non-Af 87 BUN/Creatinine Ratio 16.9 Glucose 87 Calcium 9.6 Troponin I High Sens 4 Radiography Diagnostic Testing: Clinical Impression(s) from Imaging Studies Chest X-Ray 05/15/21 11:20 IMPRESSION: Normal x-ray examination of the chest. Electronically Signed: Shiva Soliz MD at 11:56 EST , Service support , EKG Initial EKG: Attestation: I personally reviewed and interpreted this EKG as follows: (Sinus bradycardia with sinus arrhythmia, isoelectric ST segments normal T waves normal intervals no evidence acute ischemia or arrhythmia) Discharge Plan Triage Chief Complaint: Shortness of Breath ED Provider: Nando Karimi Dx/Rx/DC Orders Prescriptions: New prednisone 10 mg tablet 10 mg PO UD Qty: 33 RF: 0 No Action ustekinumab 45MG/0. syringe 1 dose SQ DAILY RF: 0 secukinumab 150 MG/ pen injector 1 dose SQ DAILY RF: 0 prednisone 20 MG tablet 40 mg PO DAILY Qty: 10 RF: 0 Primary Care Provider: Nando Sawyer Referrals: Nando Sawyer DO [Primary Care Provider] - 1 Week Disposition Disposition: Home, Self Care
[2021-05-15 10:45] VITALS: PULSE 78; RESP 18
[2021-05-15 10:46] VITALS: PULSE 901; RESP 6; O2SAT 99
[2021-05-15 10:50] LABS: Absolute Lymphocyte Count 4.54 X10^3/uL (0.83-4.51); Absolute Neutrophil Count 4.9 X10^3/uL (2.0-7.7); Basophil# 0.07 X10^3/uL; Basophil% 0.7 % (0-1); Eosinophil# 0.13 X10^3/uL; Eosinophils% 1.3 % (0-5); Hematocrit 42.5 % (37-47); Hemoglobin 14.4 g/dL (12.0-15.0); Lymphocyte # 4.54 X10^3/ul (0.83-4.51); Lymphocyte % 44.6 % (19-41); Mean Corp Hgb Conc 33.9 g/dL (32-36); Mean Corpuscular Hgb 32.5 pg (27.0-32.0); Mean Corpuscular Volume 95.9 fL (81-99); Monocyte# 0.48 X10^3/uL; Monocyte% 4.7 % (0-10); NRBC Flagged by Analyzer 0 % (0-5); Platelet Count 258 K/mm3 (150-450); RBC Distribution Width CV 12.1 % (11.6-14.6); RBC Distribution Width SD 42.5 fl (35.1-43.9); Red Blood Count 4.43 M/mm3 (4.2-5.4); White Blood Count 10.2 K/mm3 (4.4-11.0)
[2021-05-15 11:10] LABS: Anion Gap 7 (5-15); BUN 13 mg/dL (7-18); BUN/Creat Ratio 16.9 RATIO (10-20); Calcium,Total 9.6 mg/dL (8.5-10.1); Chloride 106 mmol/L (98-107); Creatinine, Serum 0.77 mg/dL (0.55-1.02); EST Glomerular Filtration Rate 87 mL/min (>60); Est Glom Filt Rate - Afr Amer 105 mL/min (>60); Estimated Creatinine Clearance 81.35 ml/min; Glucose 87 mg/dL (74-106); Potassium 3.2 mmol/L (3.5-5.1); Sodium Level 142 mmol/L (136-145); Troponin-I HS 4 pg/mL (3.0-54.0)
[2021-05-15 11:19] VITALS: O2SAT 99
--- NOTE | 2021-05-15 11:20 | RAD_ITS ---
STUDY: X-RAY CHEST REASON FOR EXAM: Female, 45 years old. Chest pain TECHNIQUE: PA and lateral views of the chest. COMPARISON: None. FINDINGS: EKG electrodes are seen. The lungs are clear and expanded. There is no demonstrated pleural abnormality. Normal size heart. Normal mediastinum and ricky. Normal visualized pulmonary arteries. Normal visualized aortic arch and descending thoracic aorta. Normal visualized thoracic spine. Normal visualized ribs, clavicles, and shoulders. There is no demonstrated abnormality of the visualized soft tissue structures of the upper abdomen. RAD/Chest PA and Lateral IMPRESSION: Normal x-ray examination of the chest. Electronically Signed: Shiva Soliz MD at 11:56 EST , Service support ,
[2021-05-15 13:02] VITALS: BP 105/62; PULSE 62; PULSE 72; RESP 22; O2SAT 97
== END 2021-05-15 13:05 | disposition home or self-care (01) ==
PROVIDERS: Emergency Provider Emergency Medicine; PCP Student in an Organized Health Care Education/Training Program
DX: J44.1 Chronic obstructive pulmonary disease with (acute) exacerbation (principal); Z79.52 Long term (current) use of systemic steroids; Z87.891 Personal history of nicotine dependence
CPT/HCPCS: 71046; 80048; 84484; 85025; 87804; 93005; 94640; 99284; A4216

== ENCOUNTER → 2021-06-05 10:22 | Outpatient (CLI) | payer OTHER, SELFPAY ==
[2021-06-05 10:41] LABS: Absolute Lymphocyte Count 2.76 X10^3/uL (0.83-4.51); Absolute Neutrophil Count 4.5 X10^3/uL (2.0-7.7); Basophil# 0.06 X10^3/uL; Basophil% 0.8 % (0-1); Eosinophil# 0.17 X10^3/uL; Eosinophils% 2.1 % (0-5); Hematocrit 43.4 % (37-47); Hemoglobin 14.5 g/dL (12.0-15.0); Lymphocyte # 2.76 X10^3/ul (0.83-4.51); Lymphocyte % 34.8 % (19-41); Mean Corp Hgb Conc 33.4 g/dL (32-36); Mean Corpuscular Hgb 32.8 pg (27.0-32.0); Mean Corpuscular Volume 98.2 fL (81-99); Mean Platelet Vol. 9.2 fl (6.2-12.0); Monocyte# 0.37 X10^3/uL; Monocyte% 4.7 % (0-10); NRBC Flagged by Analyzer 0 % (0-5); Neutrophil # 4.54 X10^3/uL (2.7-7.7); Neutrophil % 57.2 % (47-70); Platelet Count 235 K/mm3 (150-450); RBC Distribution Width SD 43.6 fl (35.1-43.9); Red Blood Count 4.42 M/mm3 (4.2-5.4); White Blood Count 7.9 K/mm3 (4.4-11.0)
== END ==
PROVIDERS: PCP Student in an Organized Health Care Education/Training Program; Referring Provider Internal Medicine Pulmonary Disease; Visit Provider Internal Medicine Pulmonary Disease
DX: J44.9 Chronic obstructive pulmonary disease, unspecified (principal)
CPT/HCPCS: 36415; 85025

== ENCOUNTER → 2023-07-01 | Outpatient (CLI) | payer OTHER, SELFPAY ==
--- OUTSIDE RECORDS SUMMARY | 2023-07-01 08:56 | XMS RPT_ITS | CCD ---
Author Name Unknown Address [address] [place] [address] Organization [facility] Care Team Providers Care Vending Stand Supervisor Name Role Phone LORENAMILLIE ORDONEZ ALEXIS Primary Care Physician [phone] HALKO DO, ALEXIS Primary Care Unavailable TARUN CAMARENA MD Attending Unavailable HALKO DO, ALEXIS Primary Care Unavailable FUNMI QUINTERO, DR GUTIERREZ Attending Unavailab le HALKO DO, ALEXIS Primary Care Unavailable CRISTINA BALDWIN MD Attending Unavailable FRANSISCO FLOYD Attending Unavailable HALKO DO, ALEXIS Primary Care Unavailable HALKO DO, ALEXIS Primary Care Unavailable MAST AUTHORIZER-PLC TECHNICIAN, ESTEFANIA Attending Unavailabl e HALKO DO, ALEXIS Primary Care Unavailable MAST AUTHORIZER-PLC TECHNICIAN, ESTEFANIA Attending Unavailabl e HALKO DO, ALEXIS Primary Care Unavailable HALKO DO, ALEXIS Attending Unavailable HALKO DO, ALEXIS Primary Care Unavailable KERRI STEWARD Attending Unavailable HALKO DO, ALEXIS Primary Care Unavailable HALKO DO, ALEXIS Attending Unavailable HALKO DO, ALEXIS Primary Care Unavailable HALKO DO, ALEXIS Attending Unavailable HALKO DO, ALEXIS Primary Care Unavailable CRISTINA BALDWIN MD Attending Unavailable HALKO DO, ALEXIS Primary Care Unavailable HALKO DO, ALEXIS Attending Unavailable DENNY QUINTERO, CRISTINA Rg Admitting Unavailable HALKO DO, ALEXIS Consulting Unavailable HALKO DO, ALEXIS Primary Care Unavailable CRISTINA BALDWIN MD Attending Unavailable LASKOVSKI DO, JOHNNIE Consulting Unavailabl e HALKO DO, ALEXIS Primary Care Unavailable HALKO DO, ALEXIS Attending Unavailable HALKO DO, ALEXIS Primary Care Unavailable SEFFENS AUTHORIZER-PLC TECHNICIAN, MARK Attending Connor salmeron HALKO DO, ALEXIS Primary Care Unavailable MAST AUTHORIZER-PLC TECHNICIAN, ESTEFANIA Attending Unavailabl e HALKO DO, ALEXIS Primary Care Unavailable HALKO DO, ALEXIS Attending Unavailable MATT , DR FINCH Attending Unavailable KENNEN AUTHORIZER-PLC TECHNICIAN, ABIOLA Rico Referring Perrigordon salmeron ABIOLA HAQUE Admitting Connor dumontALEXIS Ramirez DO Primary Care Unavailable Allergies Allergy Classification Reported Allergen(s) Allergy Type Date of Onset Reaction(s) Facility (1 source) Acetaminophen / HYDROcodone; Translations: [HYDROCODONE-ACET AMINOPHEN] Drug Allergy 0 [facility] Repository (1 source) Codeine; Translations: [CODEINE] Drug Allergy 0 [facility] Repository (20 sources) Acetaminophen / HYDROcodone; Translations: [acetaminophen-hy drocodone] Drug Allergy Blurred vision [facility] (20 sources) dilTIAZem; Translations: [diltiazem] Drug Allergy Fatigue (finding) [facility] (20 sources) DULoxetine; Translations: [duloxetine] Drug Allergy Palpitations (finding) [facility] Medications Current Medications Medication Drug Class(es) Dates Sig (Normalized) Sig (Original) acetaminophen 500 mg oral tablet (13 sources) Start: 07-30-2019 acetaminophen 500 mg oral tablet Dose : 1,000 mg = 2 tab(s), Oral, TID, PRN for pain, 0 Refill(s) Start Date: 07/30/19 Status: Ordered acetaminophen 325 mg / oxyCODONE hydrochloride 5 mg oral tablet (2 sources) Opioid Agonist Start: 01-24-2022 acetaminophen-oxyCO DONE 325 mg-5 mg oral tablet 0 Refill(s), 57.6 Start Date: 01/24/22 Status: Ordered albuterol 0.833 mg/ml / ipratropium bromide 0.167 mg/ml inhalation solution (20 sources) Anticholinergic, beta2-Adrenergic Agonist Start: 12-11-2022 take 1 dose by inhalation every four hours albuterol-ipratropi um 2.5 mg-0.5 mg/3 mL inhalation solution Dose = 3 mL, Inhalation, q4h, # 30 EA, 0 Refill(s), Pharmacy: [facility]/pharmacy #[id number], 160, cm, 12/11/22 16:01:00 EDT, Height, kg, 12/11/22 16:01:00 EDT, Dosing Weight Start Date: 12/11/22 Status: Ordered Completed/Discontinued Medications Medication Drug Class(es) Dates Sig (Normalized) Sig (Original) budesonide 0.25 mg/ml inhalation suspension (20 sources) Corticosteroid Start: 12-31-2021 End: 09-30-2022 take 1 dose by inhalation twice daily budesonide 0.5 mg/2 mL inhalation suspension Dose : 0.5 mg = 2 mL, Inhalation, BID, # 360 mL, 1 Refill(s), Pharmacy: [facility]/pharmacy #[id number], 161.5, cm, 04/03/22 10:18:00 EDT, Height Start Date: 04/03/22 Stop Date: 09/30/22 Status: Ordered Problems Active Problems Problem Classification Problem Date Documented Da te Episodic/Chronic Anxiety disorders (20 sources) Mixed anxiety and depressive disorder; Translations: [Anxiety] 07-16-2017 Chronic Calculus of urinary tract (20 sources) Kidney stone 07-10-2020 Episodic Cardiac dysrhythmias (10 sources) Palpitations 01-10-2020 Episodic Chronic obstructive pulmonary disease and bronchiectasis (20 sources) Bronchiectasis; Translations: [Chronic bronchitis] Onset: 08-16-2021 07-29-2020 Chronic Past or Other Problems Problem Classification Problem Date Documented Da te Episodic/Chronic Abdominal pain (5 sources) Flank pain; Translations: [Unspecified abdominal pain] Onset: 08-30-2022 08-29-2022 Episodic Fever of unknown origin (20 sources) Fever; Translations: [Fever, unspecified] Onset: 05-16-2022 07-18-2021 Episodic Other lower respiratory disease (2 sources) Hypoxemia; Translations: [Hypoxemia] Onset: 08-19-2022 Episodic Other lower respiratory disease (2 sources) Shortness of breath; Translations: [Shortness of breath] Onset: 08-19-2022 Episodic Other upper respiratory infections (20 sources) Pharyngitis; Translations: [Viral upper respiratory tract infection] Onset: 02-25-2022 07-18-2021 Episodic Results Test Name Value Interpretation Reference Range Facil ity Vital Signs Date Time Vital Sign Value Performing Clinician Faci lity 12-06-2022 22:30-0400 Diastolic Blood Pressure Non-Invasive [address] MATT CHOUDHARY MD [facility] 12-06-2022 22:30-0400 Heart rate 75 /min DR MATT CHOUDHARY MD [facility] 12-06-2022 22:30-0400 Respiratory rate 16 /min DR MATT CHOUDHARY MD [facility] 12-06-2022 22:30-0400 Systolic Blood Pressure Non-Invasive [address] MATT CHOUDHARY MD [facility] 12-06-2022 21:41-0400 Heart rate 86 /min DR MATT CHOUDHARY MD [facility] 12-06-2022 21:41-0400 Respiratory rate 18 /min DR MATT CHOUDHARY MD [facility] 12-06-2022 21:03-0400 Heart rate 90 /min DR MATT CHOUDHARY MD [facility] 12-06-2022 21:03-0400 Respiratory rate 18 /min DR MATT CHOUDHARY MD [facility] 12-06-2022 20:26-0400 Body height 162.[address] MATT CHOUDHARY MD [facility] 12-06-2022 20:26-0400 Body temperature 98.24 [degF] DR MATT CHOUDHARY MD [facility] 12-06-2022 20:26-0400 Body weight 59.[address] MATT CHOUDHARY MD [facility] 12-06-2022 20:26-0400 Diastolic Blood Pressure Non-Invasive [address] MATT CHOUDHARY MD [facility] 12-06-2022 20:26-0400 Systolic Blood Pressure Non-Invasive [address] MATT CHOUDHARY MD [facility] 08-26-2022 10:42-0400 Body temperature 97.16 [degF] TARUN CAMARENA MD [facility] 08-26-2022 10:42-0400 Body weight 61.5 kg TARUN CAMARENA MD [facility] 08-26-2022 10:42-0400 Diastolic Blood Pressure Non-Invasive 62 1 TARUN CAMARENA MD [facility] 08-26-2022 10:42-0400 Heart rate 103 /min TARUN CAMARENA MD [facility] 08-26-2022 10:42-0400 Respiratory rate 16 /min TARUN CAMARENA MD [facility] 08-26-2022 10:42-0400 Systolic Blood Pressure Non-Invasive 101 1 TARUN CAMARENA MD [facility] 06-08-2022 18:58-0500 Body temperature 98.24 [degF] DR FRANSISCO FLOYD DO [facility] 06-08-2022 18:58-0500 Diastolic Blood Pressure Non-Invasive [address] FRANSISCO FLOYD DO [facility] 06-08-2022 18:58-0500 Heart rate 75 /min DR FRANSISCO FLOYD DO [facility] 06-08-2022 18:58-0500 Respiratory rate 18 /min DR FRANSISCO FLOYD DO [facility] 06-08-2022 18:58-0500 Systolic Blood Pressure Non-Invasive [address] FRANSISCO FLOYD DO [facility] 12-31-2021 09:57-0400 Body height [address] CRISTINA BALDWIN MD [facility] 12-31-2021 09:57-0400 Body temperature 98.42 [degF] DR CRISTINA BALDWIN MD [facility] 12-31-2021 09:57-0400 Body weight 58.[address] CRISTINA BALDWIN MD [facility] 12-31-2021 09:57-0400 diastolic 81 mm[Hg] DR CRISTINA BALDWIN MD [facility] 12-31-2021 09:57-0400 Heart rate 62 /min DR CRISTINA BALDWIN MD [facility] 12-31-2021 09:57-0400 systolic 128 mm[Hg] DR CRISTINA BALDWIN MD [facility] 12-11-2021 08:21-0400 Heart rate 72 /min NIKHIL SANDS MD [facility] 12-11-2021 08:17-0400 Body temperature 97.88 [degF] NIKHIL SANDS MD [facility] 12-11-2021 08:17-0400 Diastolic Blood Pressure NBP 67 1 NIKHIL SANDS MD [facility] 12-11-2021 08:17-0400 Heart rate 75 /min NIKHIL SANDS MD [facility] 12-11-2021 08:17-0400 Systolic Blood Pressure NBP 104 1 NIKHIL SANDS MD [facility] 12-11-2021 07:46-0400 Body height 162.6 cm NIKHIL SANDS MD [facility] 12-11-2021 07:46-0400 Body temperature 97.16 [degF] NIKHIL SANDS MD [facility] 12-11-2021 07:46-0400 Body weight 59.1 kg NIKHIL SANDS MD [facility] 12-11-2021 07:46-0400 Diastolic Blood Pressure NBP 62 1 NIKHIL SANDS MD [facility] 12-11-2021 07:46-0400 Heart rate 79 /min NIKHIL SANDS MD [facility] 12-11-2021 07:46-0400 Respiratory rate 16 /min NIKHIL SANDS MD [facility] 12-11-2021 07:46-0400 Systolic Blood Pressure NBP 107 1 NIKHIL SANDS MD [facility] 08-16-2021 11:39-0500 Diastolic blood pressure 54 mm[Hg] GIOVANNI RHODES MD [facility] 08-16-2021 11:39-0500 Heart rate 90 /min GIOVANNI RHODES MD [facility] 08-16-2021 11:39-0500 Respiratory rate 19 /min GIOVANNI RHODES MD [facility] 08-16-2021 11:39-0500 Systolic blood pressure 90 mm[Hg] GIOVANNI RHODES MD [facility] 08-16-2021 10:50-0500 Diastolic blood pressure 61 mm[Hg] GIOVANNI RHODES MD [facility] 08-16-2021 10:50-0500 Systolic blood pressure 95 mm[Hg] GIOVANNI RHODES MD [facility] 08-16-2021 10:44-0500 Diastolic blood pressure 68 mm[Hg] GIOVANNI RHODES MD [facility] 08-16-2021 10:44-0500 Heart rate 85 /min GIOVANNI RHODES MD [facility] 08-16-2021 10:44-0500 Respiratory rate 20 /min GIOVANNI RHODES MD [facility] 08-16-2021 10:44-0500 Systolic blood pressure 87 mm[Hg] GIOVANNI RHODES MD [facility] 08-16-2021 10:15-0500 Body height 162.6 cm GIOVANNI RHODES MD [facility] 08-16-2021 10:15-0500 Body temperature 98.78 [degF] GIOVANNI RHODES MD [facility] 08-16-2021 10:15-0500 Body weight 59 kg GIOVANNI RHODES MD [facility] 08-16-2021 10:15-0500 diastolic 118 mm[Hg] GIOVANNI RHODES MD [facility] 08-16-2021 10:15-0500 Heart rate 88 /min GIOVANNI RHODES MD [facility] 08-16-2021 10:15-0500 Respiratory rate 24 /min GIOVANNI RHODES MD [facility] 08-16-2021 10:15-0500 systolic 135 mm[Hg] GIOVANNI RHODES MD [facility] Encounters Encounter Date Encounter Type Care Provider Facility Start: 12-24-2022 End: 12-25-2022 ambulatory ALEXIS REICH DO Facility:B Start: 12-24-2022 End: 12-24-2022 Patient encounter procedure ALEXIS REICH DO [facility] Start: 12-06-2022 End: 12-07-2022 Emergency department patient visit ALEXIS REICH DO Facility:B Start: 12-06-2022 End: 12-06-2022 Emergency department patient visit DR MATT CHOUDHARY MD [facility] Start: 08-30-2022 End: 09-04-2022 ambulatory ALEXIS REICH DO Facility:B Start: 08-30-2022 End: 09-03-2022 Outreach Lab ALEXIS REICH DO [facility] Start: 08-26-2022 End: 08-26-2022 Emergency department patient visit ALEXIS CARRILLOKO DO Facility:B Start: 08-26-2022 End: 08-26-2022 Emergency department patient visit TARUN CAMARENA MD [facility] Start: 08-19-2022 End: 08-24-2022 ambulatory ALEXIS LORENAKO DO Facility:B Start: 08-19-2022 End: 08-20-2022 ambulatory ALEXIS HALKO DO Facility:B Start: 08-19-2022 End: 08-23-2022 Outreach Lab ESTEFANIA MAST AUTHORIZER-PLC TECHNICIAN [facility] Start: 08-16-2022 End: 08-17-2022 ambulatory ALEXIS CARRILLOKO DO Facility:B Start: 08-16-2022 End: 08-16-2022 Patient encounter procedure ESTEFANIA MAST AUTHORIZER-PLC TECHNICIAN [facility] Start: 06-08-2022 End: 06-08-2022 Emergency department patient visit FRANSISCO FLOYD Facility:B Start: 06-08-2022 End: 06-08-2022 Emergency department patient visit DR FRANSISCO FLOYD DO [facility] Start: 05-16-2022 End: 05-21-2022 ambulatory ALEXIS CARRILLOKO DO Facility:B Start: 05-16-2022 End: 05-20-2022 Outreach Lab MARK BROWN AUTHORIZER-PLC TECHNICIAN [facility] Start: 04-18-2022 End: 04-19-2022 ambulatory ALEXIS LORENAKO DO Facility:B Start: 04-18-2022 End: 04-18-2022 Patient encounter procedure ALEXIS LORENAKO DO [facility] Start: 04-02-2022 End: 04-03-2022 ambulatory ALEXIS REICH DO Facility:B Start: 04-02-2022 End: 04-02-2022 Patient encounter procedure ALEXIS CARRILLOKO DO [facility] Start: 02-27-2022 End: 03-01-[address] JOSETTE GUTIERREZ DO Facility:B Start: 02-25-2022 End: 03-02-2022 ambulatory ALEXIS REICH DO Facility:B Start: 02-25-2022 End: 03-01-2022 Outreach Lab ALEXIS REICH DO [facility] Start: 01-29-2022 End: 01-30-2022 ambulatory ALEXIS CARRILLOKO DO Facility:A Start: 01-29-2022 End: 01-29-[address] CRISTINA BALDWIN MD [facility] Start: 01-24-2022 End: 01-25-2022 ambulatory ALEXIS REICH DO Facility:A Start: 01-24-2022 End: 01-24-2022 Patient encounter procedure KERRI STEWARD AUTHORIZER-PLC TECHNICIAN [facility] Start: 01-11-2022 End: 01-11-2022 ambulatory CRISTINA BALDWIN MD Facility:A Start: 12-31-2021 End: 01-01-2022 ambulatory ALEXIS LORENAKO DO Facility:A Start: 12-31-2021 End: 12-31-2021 Patient encounter procedure ALEXIS CARRILLOKO DO [facility] Start: 12-31-2021 End: 12-31-[address] CRISTINA BALDWIN MD [facility] Start: 12-25-2021 End: 12-25-[address] CRISTINA BALDWIN MD [facility] Start: 12-13-2021 End: 12-13-[address] CRISTINA BALDWIN MD [facility] Start: 12-11-2021 End: 12-11-2021 Minor Procedure NIKHIL SANDS MD [facility] Start: 11-30-2021 End: 11-30-2021 Patient encounter procedure ALEXIS REICH DO [facility] Start: 11-27-2021 End: 11-27-2021 Patient encounter procedure NIKHIL SANDS MD [facility] Start: 11-08-2021 End: 01-01-[address] CRISTINA BALDWIN MD [facility] Start: 11-01-2021 End: 11-01-[address] CRISTINA BALDWIN MD [facility] Start: 10-17-2021 End: 10-17-2021 Patient encounter procedure ALEXIS REICH DO [facility] Start: 08-16-2021 End: 08-16-2021 Emergency department patient visit GIOVANNI RHODES MD [facility] Start: 07-20-2021 End: 07-20-2021 Patient encounter procedure ALEXIS REICH DO [facility] Start: 07-18-2021 End: 07-18-2021 Patient encounter procedure ALEXIS REICH DO [facility] Start: 04-20-2018 End: 04-21-[address] [facility] Procedures Date Procedure Procedure Detail Performing Clinician Start: 01-11-2022 Laminectomy and discectomy KERRI FLIGHT AUTHORIZER-PLC TECHNICIAN Start: 12-11-2021 PM Inj Spine L/S [facility] SN 1 NIKHIL SANDS MD Immunizations Immunization Date Immunization Notes Care Provider Fa cili 11-20-2021 tetanus toxoid, redu cynthia diphtheria toxoid, and acellular pertussis vaccine, adsorbed; Translations: [Boostrix (Tdap)] NIKHIL SANDS MD [facility] 07-23-2019 pneumococcal polysaccharide vaccine, 23 valent ALEXIS REICH DO [facility] Payers Date Payer Category Payer Unknown [id number] 1975 Unknown [id number] 2.16.8 [id number] 1975 Unknown [id number] 2.16.8 40.1.803019.3.579. 1977 Unknown [id number] 2.16.8 40.1.593917.3.579. 1977 Unknown [id number] 2.16.8 40.1.641342.3.579.2 1977 Unknown [id number] 2.16.8 40.1.170271.3.579.2 1977 Unknown [id number] 2.16.8 40.1.751122.3.579.2. 1977 Unknown [id number] 2.16.8 40.1.515937.3.579.2. 1977 Unknown [id number] 2.16.8 40.1.125537.3.579.2. 1977 Unknown [id number] 2.16.8 40.1.060228.3.579.2. 1977 Unknown [id number] 2.16.8 40.1.886326.3.579.2. 1977 Unknown [id number] 2.16.8 40.1.558633.3.579.2. 1977 Unknown [id number] 2.16.8 40.1.463950.3.579.2. 1977 Unknown [id number] 2.16.8 40.1.180706.3.579.2. 1977 Unknown [id number] 2.16.8 40.1.082082.3.579.2. 1977 Unknown [id number] 2.16.8 40.1.113138.3.579.2. 1977 Unknown [id number] 2.16.8 40.1.494730.3.579.2. 1977 Unknown [id number] 2.16.8 40.1.029023.3.579.2. 1977 Unknown [id number] 2.16.8 40.1.650183.3.579.2.627 Social History Date Type Detail Facility Start: 12-31-2020 End: 12-31-2021 Heavy tobacco smoker (finding) [facility] Sex Assigned At Female [facility] Functional Status Date Assessment Result Facility 12-06-2022 Functional Status [facility] Functional Status Standard Safet y ID band on, Allergy Band on, Call device within reach, Bed in low position, Wheels locked, Upper/Half-Length side-rails up, personal items within reach, Visitor at bedside [facility] 12-11-2021 Functional Status Ambulating in aguilar, Ambulating in room, Awake [facility] 11-08-2021 Functional Status Home Living Ad ditional Information OBJECTIVE Vitals: BP 102/72 Posture: lazy sits shift to R, no lateral shift in standing observed Gait: antalgic gait no AD Transfers: marked pain and grimacing with sit to stand Sensation: no abnormalties with light touch Reflexes: NT Edema: none AROM: flexion severe restriction, and extenson mod restriction MMT: decreased ROM of left LE with knee extension and flexion 4/5 Leg roll: neg Pelvis: symmetrical Slump test - NT d/t pos results in clinical chart [facility] Mental Status Date Assessment Result Facility 12-06-2022 Mental Status Orientation Oriented x 4 [facility] 12-06-[address] [facility] 12-11-2021 Mental Status Oriented x [address] [facility] Clinical Notes 08-16-2021 to 12-07-2022 RadiologyRadiologyRadiologyLaboratoryRadiologyLaboratoryRadiologyLaboratoryRadio logyLaboratoryRadiologyLaboratoryRadiologyLaboratoryRadiologyLaboratoryRadiology LaboratoryRadiologyLaboratoryRadiology Note Date & Type Note Facility 12-07-2022 Hospital Discharge instructions Patient Education 12/06/2022 22:35:57 COPD Flare COPD Flare You have had a flare-up of your COPD. COPD (chronic obstructive pulmonary disease) is a common lung disease. It causes your airways to get irritated and narrower. This makes it harder for you to breathe. Emphysema and chronic bronchitis are both types of COPD. This is a long-term (chronic) condition. This means you always have it. Sometimes it gets worse. When this happens, it is called a flare-up. Symptoms of COPD People with COPD may have symptoms most of the time. In a flare-up, your symptoms get worse. These symptoms may mean you are having a flare-up: Shortness of breath, shallow or rapid breathing, or wheezing that gets worse Lung infection Cough that gets worse More mucus, thicker mucus or mucus of a different color Tiredness, less energy, or trouble doing your normal activities Fever Chest tightness Your symptoms don t get better even when you use your normal medicines, inhalers, and nebulizer Trouble talking You feel confused Causes of flare-ups Unfortunately, a flare-up can happen even if you did everything right. And even if you followed your healthcare provider s instructions. Some causes of flare-ups are: Smoking or secondhand smoke Colds, the flu, or respiratory infections Air pollution Sudden change in the weather Dust, irritating chemicals, or strong fumes Not taking your medicines as prescribed Home care Here are some things you can do at home to treat a flare-up: Try not to panic. This makes it harder to breathe, and keeps you from doing the right things. Don t smoke or be around others who are smoking. Try to drink more fluids than normal during a flare-up, unless your healthcare provider has told you not to because of heart and kidney problems. More fluids can help loosen the mucus. Use your inhalers and nebulizer, if you have one, as you have been told to. If you were given antibiotics, take them until they are used up or your provider tells you to stop. It s important to finish the antibiotics, even though you feel better. This will make sure the infection has cleared. If you were given prednisone or another steroid, finish it even if you feel better. Preventing a flare-up Flare-ups happen. But the best way to treat one is to prevent it before it starts. Here are some pointers: Don t smoke or be around others who are smoking. Take your medicines as discussed with your healthcare provider. Talk with your provider about getting a flu shot every year. Also find out if you need a pneumonia shot. If there is a weather advisory warning to stay indoors, try to stay inside when possible. Try to eat healthy, exercise, and get plenty of sleep. Try to stay away from things that normally set you off. These include dust, chemical fumes, hairsprays, or strong perfumes. Follow-up care Follow up with your healthcare provider, or as advised. If a culture was done, you will be told if your treatment needs to be changed. You can call as directed for the results. If X-rays were done, you will be told of any new findings that may affect your care. Call 911 Call 911 if any of these occur: You have trouble breathing You feel confused or it s hard to wake you up You faint or lose consciousness You have a rapid heart rate You have new pain in your chest, arm, shoulder, neck, or upper back When to seek medical advice Call your healthcare provider right away if any of these occur: Wheezing or shortness of breath gets worse You need to use your inhalers more often than normal without relief Fever of 100.4 F (38 C) or higher, or as directed by your healthcare provider Coughing up lots of dark-colored or bloody mucus (sputum) Chest pain with each breath You don't start to get better within 24 hours Swelling of your ankles gets worse Dizziness or weakness [id number] [employer]. [address] [place] [address]. All rights reserved. This information is not intended as a substitute for professional medical care. Always follow your healthcare professional's instructions. Follow Up Care 12/06/2022 20:25:36 With:ALEXIS REICH DO Address: [address] [place] [address] [phone] When:2-4 days [facility] 12-06-2022 Note Discharge Instructions Thank you for allowing [facility] to assist you with your healthcare needs. The following is important discharge information regarding your hospital visit. Diagnosis from Today's Visit Acute exacerbation of COPD UC - Difficulty Breathing What to Do Next Instructions from Your Care Team Please stop smoking as this habit will continue to inflame your lungs and make you more susceptible to respiratory infections No qualifying data available. Post Acute Orders No qualifying data available. You Need to Schedule the Following Appointments Follow Up with ALEXIS REICH DO When Within 2-4 days Where: [address] [place] [phone] Allergies Cardizem (Fatigue) DULoxetine (Fatigue, Palpitations) Vicodin (Blurred vision) Medications Please ask your primary doctor or pharmacist before taking any other medication not listed, including over the counter drugs, herbal medications, vitamins and or supplements as they may interact with your home medications. What How Much When Why Instructions Last Dose New doxycycline (doxycycline hyclate 100 mg oral tablet) 1 tab(s) by mouth Two (2) times a day Acute exacerbation of COPD Duration: 10 Days Printed Prescription Unchanged albuterol (albuterol MDI (90 mcg/ inh) CFC free inhalation aerosol) 2 puff(s) by inhalation Every 4 hours as needed for as needed for wheezing COPD (chronic obstructive pulmonary disease) Dyspnea Unchanged albuterol-ipratropium (albuterol-ipratropium 2.5 mg-0.5 mg/ 3 mL inhalation solution) 3 Milliliter by inhalation Every 4 hours Unchanged albuterol-ipratropium (albuterol-ipratropium 2.5 mg-0.5 mg/ 3 mL inhalation solution) 3 Milliliter Nebulized inhalation Four (4) times a day Pt states to take QID but she does PRN. Unchanged ascorbic acid (C-500-Gr oral tablet) 1 tab(s) by mouth Once a day Contains Vitamin C 500 mg, Calcium 55 mg, Pierce Bioflavonoid complex 10 mg Unchanged budesonide (budesonide 0.5 mg/ 2 mL inhalation suspension) 2 Milliliter by inhalation Two (2) times a day Duration: 90 Days Unchanged calcipotriene topical (calcipotriene 0.005% topical cream) 1 application Topical Two (2) times a day as needed for psoriasis flares Duration: 14 Days Unchanged cholecalciferol (Vitamin D3 125 mcg (5000 intl units) oral capsule) 1 cap by mouth Once a day Unchanged clobetasol topical (clobetasol 0.05% topical cream) 1 application Topical Two (2) times a day as needed for psoriasis flares Duration: 14 Days Unchanged Misc Medication (Home Oxygen) 2 L/NC in the nose Daily at bedtime qHS with CPAP Unchanged multivitamin (Vitamin B Complex oral tablet) 1 tab(s) by mouth Once a day (in the morning) Unchanged omeprazole (PriLOSEC OTC 20 mg oral delayed release tablet) 1 tab(s) by mouth Once a day before a meal as needed for Heartburn Unchanged ondansetron (ondansetron 4 mg oral tablet, disintegrating) 1 tab(s) by mouth Every 8 hours as needed for as needed for nausea/vomiting Duration: 10 Days Unchanged promethazine (promethazine 25 mg oral tablet) 1 tab(s) by mouth Every 6 hours Duration: 10 Days Unchanged triamcinolone nasal (Nasacort Allergy 24HR 55 mcg/ inh nasal spray) 2 spray(s) each nostril Once a day Please take this list to your next doctor s visit. Bring all medications you take, including over the counter medications, herbals and other supplements with you to your doctor s visit. Patients and families are reminded to discard old lists and to update any records with all medication providers or retail pharmacies. Education Materials COPD Flare You have had a flare-up of your COPD. COPD (chronic obstructive pulmonary disease) is a common lung disease. It causes your airways to get irritated and narrower. This makes it harder for you to breathe. Emphysema and chronic bronchitis are both types of COPD. This is a long-term (chronic) condition. This means you always have it. Sometimes it gets worse. When this happens, it is called a flare-up. Symptoms of COPD People with COPD may have symptoms most of the time. In a flare-up, your symptoms get worse. These symptoms may mean you are having a flare-up: Shortness of breath, shallow or rapid breathing, or wheezing that gets worse Lung infection Cough that gets worse More mucus, thicker mucus or mucus of a different color Tiredness, less energy, or trouble doing your normal activities Fever Chest tightness Your symptoms don t get better even when you use your normal medicines, inhalers, and nebulizer Trouble talking You feel confused Causes of flare-ups Unfortunately, a flare-up can happen even if you did everything right. And even if you followed your healthcare provider s instructions. Some causes of flare-ups are: Smoking or secondhand smoke Colds, the flu, or respiratory infections Air pollution Sudden change in the weather Dust, irritating chemicals, or strong fumes Not taking your medicines as prescribed Home care Here are some things you can do at home to treat a flare-up: Try not to panic. This makes it harder to breathe, and keeps you from doing the right things. Don t smoke or be around others who are smoking. Try to drink more fluids than normal during a flare-up, unless your healthcare provider has told you not to because of heart and kidney problems. More fluids can help loosen the mucus. Use your inhalers and nebulizer, if you have one, as you have been told to. If you were given antibiotics, take them until they are used up or your provider tells you to stop. It s important to finish the antibiotics, even though you feel better. This will make sure the infection has cleared. If you were given prednisone or another steroid, finish it even if you feel better. Preventing a flare-up Flare-ups happen. But the best way to treat one is to prevent it before it starts. Here are some pointers: Don t smoke or be around others who are smoking. Take your medicines as discussed with your healthcare provider. Talk with your provider about getting a flu shot every year. Also find out if you need a pneumonia shot. If there is a weather advisory warning to stay indoors, try to stay inside when possible. Try to eat healthy, exercise, and get plenty of sleep. Try to stay away from things that normally set you off. These include dust, chemical fumes, hairsprays, or strong perfumes. Follow-up care Follow up with your healthcare provider, or as advised. If a culture was done, you will be told if your treatment needs to be changed. You can call as directed for the results. If X-rays were done, you will be told of any new findings that may affect your care. Call 911 Call 911 if any of these occur: You have trouble breathing You feel confused or it s hard to wake you up You faint or lose consciousness You have a rapid heart rate You have new pain in your chest, arm, shoulder, neck, or upper back When to seek medical advice Call your healthcare provider right away if any of these occur: Wheezing or shortness of breath gets worse You need to use your inhalers more often than normal without relief Fever of 100.4 F (38 C) or higher, or as directed by your healthcare provider Coughing up lots of dark-colored or bloody mucus (sputum) Chest pain with each breath You don't start to get better within 24 hours Swelling of your ankles gets worse Dizziness or weakness [id number] [employer]. [address] [place] [address]. All rights reserved. This information is not intended as a substitute for professional medical care. Always follow your healthcare professional's instructions. Additional Information VACCINATE! IT SAVES LIVES! Members of the community who have not yet received the COVID-19 vaccine and would like to receive it can visit one of [facility] vaccine clinics. There are many vaccine clinic locations within the [facility]. For locations and available times, please visit [email or web address] [email or web address] It is important to note that some COVID mobile vaccine clinics are held outdoors and may be canceled in rainy or stormy conditions. To learn more about pediatric vaccinations (ages 5-11), we invite you to visit the [facility] webpage. https://www.[email or web address]/p [email or web address]-Wezmc-Qjyjajswdmf-Freq sgltfp-Duspr-Qmpirusfq.html To learn more about the COVID-19 vaccine, we invite you to visit the CDC website for a list of frequently asked questions. https://www.cdc.gov/coronavirus/ 2019-ncov/vaccines/faq.html [facility] Patient Portal Access Instructions: Stay connected with your healthcare team and access your personal medical information anytime with the [facility] Patient Portal. If you would like a full copy of your medical records please contact the [facility] Medical Records Department Friday through Friday between 8a.m. and 4:30p.m. Please follow the directions below to access the portal: 1.Access the email account you provided upon registration to the hospital.2.Look for an invitation email from [facility].3.Open the email and access the invitation link: Accept Invitation to [facility]4.Fill in the required brian to create your account. Sign into [email or web address] with your username and password that you created in the above steps to stay up to date. You can then view a summary of results, a summary of your visits, and the ability to download your summaries to your computer or send the information securely to a physician. Remember that your healthcare information is confidential, so carefully consider who you will allow to register on the [facility] Patient Portal for access to your information. You can also access the [facility] Patient Portal on the [employer]. Simply click on Health Records under Health Data and then click on the [employer] logo. HOW TO SAFELY DISPOSE OF PRESCRIPTION MEDICATIONS Please use one of the following methods to safely dispose of your unused medications. 1.Use a drug disposal kit: the drug disposal pouch allows you to safely discard your old and unused drugs. Ask your nurse to give you one when you are discharged.2.Visit a local take-back location: Many local pharmacies and police departments have programs that collect old and unwanted prescription drugs. Call your local pharmacy or go to http://[employer]/9M3Ec3t to find one close to you.3.Make use of household items: Use cat litter or old coffee grounds to dispose medications if other options are not available. Mix your drugs with these household products, seal them in an airtight container and throw it into the garbage. Call [facility]: [phone] to be sure your drugs can be disposed of in this way. Some medicines may require a different approach.4.Never flush your medications down the toilet. IF YOU HAVE BEEN PRESCRIBED AN OPIOIDS FOR PAIN If you have been prescribed an opioid (such as hydrocodone, oxycodone or morphine), it is critical to understand the possible side effects and risks of opioid pain medications. Even when taken as directed, opioids can have several side effects including: Tolerance, meaning you might need to take more of a medication for the same pain relief. Nausea, vomiting and/or constipation. Sleepiness, dizziness, dry mouth, confusion, depression or itching. Physical dependence, meaning you have withdrawal symptoms when a medication is stopped ? this can develop within a few days. KNOW YOUR RESPONSIBILITIES It is important to know exactly how much and how often to take the opioid pain medications you are prescribed. Never take opioids in higher amounts or more often than prescribed. Do not combine opioids with alcohol or other drugs that cause drowsiness, such as benzodiazepines, also known as benzos, including diazepam and alprazolam, muscle relaxants or sleep aids. Never sell or share prescription opioids. This is illegal. Store opioids in a secure place and out of reach of others (including children, family, friends and visitors). The last page(s) of this document has been signed and retained as a CHART COPY Signatures Patient Education Materials COPD Flare Medication Leaflets My discharge plan and instructions have been reviewed and explained to me and IAZRA KARRIE D understand my current condition and have read and understand these discharge instructions. I have received a written copy of the plan/instructions. If I have questions, I am aware that I should contact my doctor. 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 There is no pulmonary consolidation. No pneumothorax or pleural effusion. No aggressive osseous lesions identified. IMPRESSION: No acute radiographic findings. Interpreted by: Santy Coe MD Preliminary Report By: Santy Coe MD Electronically signed By Santy Coe MD Dictated Date: 12/06/2022 9:31:28 PM Prelim Date: 12/06/2022 9:32:09 PM Sign Date: 12/06/2022 9:32:09 PM Ordering Provider: [facility] 12-06-2022 Note ORIGINAL EXAMINATION: TWO XRAY VIEWS OF THE CHEST12/06/2022 9:26 pm COMPARISON: 10/19/2022 HISTORY: ORDERING SYSTEM PROVIDED HISTORY: Reason for Exam: SOB/Cough/Fever FINDINGS: The heart size is normal. There is no pulmonary consolidation. No pneumothorax or pleural effusion. No aggressive osseous lesions identified. IMPRESSION: No acute radiographic findings. Interpreted by: Santy Coe MD Preliminary Report By: Santy Coe MD Electronically signed By Santy Coe MD Dictated Date: 12/06/2022 9:31:28 PM Prelim Date: 12/06/2022 9:32:09 PM Sign Date: 12/06/2022 9:32:09 PM Ordering Provider: [facility] 09-01-2022 Note . MICRO - Microbiology PROCEDURE: Urine Culture [*1] SOURCE: Urine, Clean Catch BODY SITE: COLLECTED DATE/TIME: 08/30/2022 16:25 EDT RECEIVED DATE/TIME: 08/31/2022 15:44 EDT START DATE/TIME: 08/31/2022 15:44 EDT FREE TEXT SOURCE: FINAL REPORTS Final Report [] Verified Date/Time/Personnel: 09/01/2022 14:34 EDT <10,000 cfu/ml. No Significant growth. Sensitivity not indicated. Performing Locations *1: This test was performed at: [facility], [address] [place] [address], [facility] , [facility] ([place]) 08-26-2022 Hospital Discharge instructions Patient Education 08/26/2022 12:07:44 Viral Syndrome (Adult) Viral Syndrome (Adult) A viral illness may cause a number of symptoms such as fever. Other symptoms depend on the part of the body that the virus affects. If it settles in your nose, throat, and lungs, it may cause cough, sore throat, congestion, runny nose, headache, earache and other ear symptoms, or shortness of breath. If it settles in your stomach and intestinal tract, it may cause nausea, vomiting, cramping, and diarrhea. Sometimes it causes generalized symptoms like aching all over, feeling tired, loss of energy, or loss of appetite. A viral illness usually lasts anywhere from several days to several weeks, but sometimes it lasts longer. In some cases, a more serious infection can look like a viral syndrome in the first few days of the illness. You may need another exam and additional tests to know the difference. Watch for the warning signs listed below for when to seek medical advice. Home care Follow these guidelines for taking care of yourself at home: If symptoms are severe, rest at home for the first 2 to 3 days. Stay away from cigarette smoke - both your smoke and the smoke from others. You may use wmtt-jag-jjbzvsv acetaminophen or ibuprofen for fever, muscle aching, and headache, unless another medicine was prescribed for this. If you have chronic liver or kidney disease or ever had a stomach ulcer or gastrointestinal bleeding, talk with your healthcare provider before using these medicines. No one who is younger than 18 and ill with a fever should take aspirin. It may cause severe disease or . Your appetite may be poor, so a light diet is fine. Avoid dehydration by drinking 8 to 12, 8-ounce glasses of fluids each day. This may include water; orange juice; lemonade; apple, grape, and cranberry juice; clear fruit drinks; electrolyte replacement and sports drinks; and decaffeinated teas and coffee. If you have been diagnosed with a kidney disease, ask your healthcare provider how much and what types of fluids you should drink to prevent dehydration. If you have kidney disease, drinking too much fluid can cause it build up in the your body and be dangerous to your health. Dcwd-gqi-cwhdyau remedies won't shorten the length of the illness but may be helpful for symptoms such as cough, sore throat, nasal and sinus congestion, or diarrhea. Don't use decongestants if you have high blood pressure. Follow-up care Follow up with your healthcare provider if you do not improve over the next week. Call 911 Call 911 if any of the following occur: Convulsion Feeling weak, dizzy, or like you are going to faint Chest pain, or more than mild shortness of breath When to seek medical advice Call your healthcare provider right away if any of these occur: Cough with lots of colored sputum (mucus) or blood in your sputum Chest pain, shortness of breath, wheezing, or trouble breathing Severe headache; face, neck, or ear pain Severe, constant pain in the lower right side of your belly (abdominal) Continued vomiting (can t keep liquids down) Frequent diarrhea (more than 5 times a day); blood (red or black color) or mucus in diarrhea Feeling weak, dizzy, or like you are going to faint Extreme thirst Fever of 100.4 F (38 C) or higher, or as directed by your healthcare provider [id number] [employer]. [address] [place] [address], [place] [address]. All rights reserved. This information is not intended as a substitute for professional medical care. Always follow your healthcare professional's instructions. Follow Up Care 08/26/2022 10:43:11 With:ALEXIS REICH Address: [address] [place] [address] [place] [address]- [phone] Business (1) When:2-4 days Comments:Schedule an appointment for close follow-up if your symptoms persist.Resume all routine home medications.Start with clear liquids and slowly advance her diet as tolerated.Use Zofran as prescribed for nausea and vomiting as needed.May use puie-aki-cebkklg antidiarrheals like Imodium as needed.Use Tylenol, Advil or Aleve for fever and discomfort as needed.Return to the ED if symptoms worsen. [facility] 08-26-2022 Note Discharge Instructions Thank you for allowing [facility] to assist you with your healthcare needs. The following is important discharge information regarding your hospital visit. Diagnosis from Today's Visit Weakness or fatigue What to Do Next Instructions from Your Care Team No qualifying data available. Post Acute Orders No qualifying data available. You Need to Schedule the Following Appointments Follow Up with ALEXIS REICH When Within 2-4 days Why: Schedule an appointment for close follow-up if your symptoms persist. Resume all routine home medications. Start with clear liquids and slowly advance her diet as tolerated. Use Zofran as prescribed for nausea and vomiting as needed. May use mulv-afa-gowwjju antidiarrheals like Imodium as needed. Use Tylenol, Advil or Aleve for fever and discomfort as needed. Return to the ED if symptoms worsen. Where: [address] [place] [address]- [phone] Business (1) Allergies Cardizem (Fatigue) DULoxetine (Fatigue, Palpitations) Vicodin (Blurred vision) Medications Please ask your primary doctor or pharmacist before taking any other medication not listed, including over the counter drugs, herbal medications, vitamins and or supplements as they may interact with your home medications. What How Much When Why Instructions Last Dose New ondansetron (Zofran 4 mg oral tablet) 1 tab(s) by mouth Every 6 hours as needed for As needed for nausea and vomiting Duration: 3 Days Printed Prescription Unchanged albuterol (albuterol MDI (90 mcg/ inh) CFC free inhalation aerosol) 2 puff(s) by inhalation Every 4 hours as needed for as needed for wheezing COPD (chronic obstructive pulmonary disease) Dyspnea Unchanged albuterol-ipratropium (albuterol-ipratropium 2.5 mg-0.5 mg/ 3 mL inhalation solution) 3 Milliliter by inhalation Every 4 hours Unchanged albuterol-ipratropium (albuterol-ipratropium 2.5 mg-0.5 mg/ 3 mL inhalation solution) 3 Milliliter Nebulized inhalation Four (4) times a day Pt states to take QID but she does PRN. Unchanged ascorbic acid (C-500-Gr oral tablet) 1 tab(s) by mouth Once a day Contains Vitamin C 500 mg, Calcium 55 mg, Pierce Bioflavonoid complex 10 mg Unchanged budesonide (budesonide 0.5 mg/ 2 mL inhalation suspension) 2 Milliliter by inhalation Two (2) times a day Duration: 90 Days Unchanged calcipotriene topical (calcipotriene 0.005% topical cream) 1 application Topical Two (2) times a day as needed for psoriasis flares Unchanged cholecalciferol (Vitamin D3 125 mcg (5000 intl units) oral capsule) 1 cap by mouth Once a day Unchanged clobetasol topical (clobetasol 0.05% topical cream) 1 application Topical Two (2) times a day as needed for psoriasis flares Unchanged dexamethasone (dexamethasone 6 mg oral tablet) 1 tab(s) by mouth Once a day Hypoxia SOB (shortness of breath) Duration: 10 Days Unchanged Misc Medication (Home Oxygen) 2 L/NC in the nose Daily at bedtime qHS with CPAP Unchanged multivitamin (Vitamin B Complex oral tablet) 1 tab(s) by mouth Once a day (in the morning) Unchanged omeprazole (PriLOSEC OTC 20 mg oral delayed release tablet) 1 tab(s) by mouth Once a day before a meal as needed for Heartburn Please take this list to your next doctor s visit. Bring all medications you take, including over the counter medications, herbals and other supplements with you to your doctor s visit. Patients and families are reminded to discard old lists and to update any records with all medication providers or retail pharmacies. Medication Leaflets ondansetron (oral) (on HAMZAH se kwesi) Edel Hollingsworth Zuplenz What is the most important information I should know about ondansetron? You should not use ondansetron if you are also using apomorphine (Apokyn). What is ondansetron? Ondansetron blocks the actions of chemicals in the body that can trigger nausea and vomiting. Ondansetron is used to prevent nausea and vomiting that may be caused by surgery, cancer chemotherapy, or radiation treatment. Ondansetron may be used for purposes not listed in this medication guide. What should I discuss with my health care provider before taking ondansetron? You should not use ondansetron if: you are also using apomorphine (Apokyn); or you are allergic to ondansetron or similar medicines (dolasetron, granisetron, palonosetron). To make sure ondansetron is safe for you, tell your doctor if you have: liver disease; an electrolyte imbalance (such as low levels of potassium or magnesium in your blood); congestive heart failure, slow heartbeats; a personal or family history of long QT syndrome; or a blockage in your digestive tract (stomach or intestines). Ondansetron is not expected to harm an unborn baby. Tell your doctor if you are . It is not known whether ondansetron passes into breast milk or if it could harm a nursing baby. Tell your doctor if you are breast-feeding a baby. Ondansetron is not approved for use by anyone younger than 4 years old. Ondansetron orally disintegrating tablets may contain phenylalanine. Tell your doctor if you have phenylketonuria (PKU). How should I take ondansetron? Follow all directions on your prescription label. Do not take this medicine in larger or smaller amounts or for longer than recommended. Ondansetron can be taken with or without food. The first dose of ondansetron is usually taken before the start of your surgery, chemotherapy, or radiation treatment. Follow your doctor's dosing instructions very carefully. Take the ondansetron regular tablet with a full glass of water. To take the orally disintegrating tablet (Zofran ODT): Keep the tablet in its blister pack until you are ready to take it. Open the package and peel back the foil. Do not push a tablet through the foil or you may damage the tablet. Use dry hands to remove the tablet and place it in your mouth. Do not swallow the tablet whole. Allow it to dissolve in your mouth without chewing. Swallow several times as the tablet dissolves. To use ondansetron oral soluble film (strip) (Zuplenz): Keep the strip in the foil pouch until you are ready to use the medicine. Using dry hands, remove the strip and place it on your tongue. It will begin to dissolve right away. Do not swallow the strip whole. Allow it to dissolve in your mouth without chewing. Swallow several times after the strip dissolves. If desired, you may drink liquid to help swallow the dissolved strip. Wash your hands after using Zuplenz. Measure liquid medicine with the dosing syringe provided, or with a special dose-measuring spoon or medicine cup. If you do not have a dose-measuring device, ask your pharmacist for one. Store at room temperature away from moisture, heat, and light. Store liquid medicine in an upright position. What happens if I miss a dose? Take the missed dose as soon as you remember. Skip the missed dose if it is almost time for your next scheduled dose. Do not take extra medicine to make up the missed dose. What happens if I overdose? Seek emergency medical attention or call the Poison Help line at . Overdose symptoms may include sudden loss of vision, severe constipation, feeling light-headed, or fainting. What should I avoid while taking ondansetron? Ondansetron may impair your thinking or reactions. Be careful if you drive or do anything that requires you to be alert. What are the possible side effects of ondansetron? Get emergency medical help if you have signs of an allergic reaction: rash, hives; fever, chills, difficult breathing; swelling of your face, lips, tongue, or throat. Call your doctor at once if you have: severe constipation, stomach pain, or bloating; headache with chest pain and severe dizziness, fainting, fast or pounding heartbeats; fast or pounding heartbeats; jaundice (yellowing of the skin or eyes); blurred vision or temporary vision loss (lasting from only a few minutes to several hours); high levels of serotonin in the body--agitation, hallucinations, fever, fast heart rate, overactive reflexes, nausea, vomiting, diarrhea, loss of coordination, fainting. Common side effects may include: diarrhea or constipation; headache; drowsiness; or tired feeling. This is not a complete list of side effects and others may occur. Call your doctor for medical advice about side effects. You may report side effects to FDA at 2-700-BTB-3625. What other drugs will affect ondansetron? Ondansetron can cause a serious heart problem, especially if you use certain medicines at the same time, including antibiotics, antidepressants, heart rhythm medicine, antipsychotic medicines, and medicines to treat cancer, malaria, HIV or AIDS. Tell your doctor about all medicines you use, and those you start or stop using during your treatment with ondansetron. Taking ondansetron while you are using certain other medicines can cause high levels of serotonin to build up in your body, a condition called 'serotonin syndrome,' which can be fatal. Tell your doctor if you also use: medicine to treat depression; medicine to treat a psychiatric disorder; a narcotic (opioid) medication; or medicine to prevent nausea and vomiting. This list is not complete and many other drugs can interact with ondansetron. This includes prescription and hbcv-acj-shgfzvr medicines, vitamins, and herbal products. Give a list of all your medicines to any healthcare provider who treats you. Where can I get more information? Your pharmacist can provide more information about ondansetron. Remember, keep this and all other medicines out of the reach of children, never share your medicines with others, and use this medication only for the indication prescribed. Every effort has been made to ensure that the information provided by [employer]. ('[employer]') is accurate, up-to-date, and complete, but no guarantee is made to that effect. Drug information contained herein may be time sensitive. [employer] information has been compiled for use by healthcare practitioners and consumers in the [place] and therefore [employer] does not warrant that uses outside of the [place] are appropriate, unless specifically indicated otherwise. [employer] drug information does not endorse drugs, diagnose patients or recommend therapy. [employer] drug information is an informational resource designed to assist licensed healthcare practitioners in caring for their patients and/or to serve consumers viewing this service as a supplement to, and not a substitute for, the expertise, skill, knowledge and judgment of healthcare practitioners. The absence of a warning for a given drug or drug combination in no way should be construed to indicate that the drug or drug combination is safe, effective or appropriate for any given patient. [employer] does not assume any responsibility for any aspect of healthcare administered with the aid of information [facility] provides. The information contained herein is not intended to cover all possible uses, directions, precautions, warnings, drug interactions, allergic reactions, or adverse effects. If you have questions about the drugs you are taking, check with your doctor, nurse or pharmacist. Copyright 2351-2997 [employer]. Version: 13.01. Revision Date: 03/29/2016. Education Materials Viral Syndrome (Adult) A viral illness may cause a number of symptoms such as fever. Other symptoms depend on the part of the body that the virus affects. If it settles in your nose, throat, and lungs, it may cause cough, sore throat, congestion, runny nose, headache, earache and other ear symptoms, or shortness of breath. If it settles in your stomach and intestinal tract, it may cause nausea, vomiting, cramping, and diarrhea. Sometimes it causes generalized symptoms like aching all over, feeling tired, loss of energy, or loss of appetite. A viral illness usually lasts anywhere from several days to several weeks, but sometimes it lasts longer. In some cases, a more serious infection can look like a viral syndrome in the first few days of the illness. You may need another exam and additional tests to know the difference. Watch for the warning signs listed below for when to seek medical advice. Home care Follow these guidelines for taking care of yourself at home: If symptoms are severe, rest at home for the first 2 to 3 days. Stay away from cigarette smoke - both your smoke and the smoke from others. You may use rfqs-xky-bujdpln acetaminophen or ibuprofen for fever, muscle aching, and headache, unless another medicine was prescribed for this. If you have chronic liver or kidney disease or ever had a stomach ulcer or gastrointestinal bleeding, talk with your healthcare provider before using these medicines. No one who is younger than 18 and ill with a fever should take aspirin. It may cause severe disease or . Your appetite may be poor, so a light diet is fine. Avoid dehydration by drinking 8 to 12, 8-ounce glasses of fluids each day. This may include water; orange juice; lemonade; apple, grape, and cranberry juice; clear fruit drinks; electrolyte replacement and sports drinks; and decaffeinated teas and coffee. If you have been diagnosed with a kidney disease, ask your healthcare provider how much and what types of fluids you should drink to prevent dehydration. If you have kidney disease, drinking too much fluid can cause it build up in the your body and be dangerous to your health. Fwxr-yoy-wunzlyd remedies won't shorten the length of the illness but may be helpful for symptoms such as cough, sore throat, nasal and sinus congestion, or diarrhea. Don't use decongestants if you have high blood pressure. Follow-up care Follow up with your healthcare provider if you do not improve over the next week. Call 911 Call 911 if any of the following occur: Convulsion Feeling weak, dizzy, or like you are going to faint Chest pain, or more than mild shortness of breath When to seek medical advice Call your healthcare provider right away if any of these occur: Cough with lots of colored sputum (mucus) or blood in your sputum Chest pain, shortness of breath, wheezing, or trouble breathing Severe headache; face, neck, or ear pain Severe, constant pain in the lower right side of your belly (abdominal) Continued vomiting (can t keep liquids down) Frequent diarrhea (more than 5 times a day); blood (red or black color) or mucus in diarrhea Feeling weak, dizzy, or like you are going to faint Extreme thirst Fever of 100.4 F (38 C) or higher, or as directed by your healthcare provider [id number] [employer]. [address] [place] [address]. All rights reserved. This information is not intended as a substitute for professional medical care. Always follow your healthcare professional's instructions. Additional Information VACCINATE! IT SAVES LIVES! Members of the community who have not yet received the COVID-19 vaccine and would like to receive it can visit one of [facility] vaccine clinics. There are many vaccine clinic locations within the [facility]. For locations and available times, please visit [email or web address] [email or web address] It is important to note that some COVID mobile vaccine clinics are held outdoors and may be canceled in rainy or stormy conditions. To learn more about pediatric vaccinations (ages 5-11), we invite you to visit the [facility] webpage. https://www.[email or web address].org/p ages/9818-Slwpv-Vujezjeyhyk-Freq uewxjz-Jwlxd-Aoduuipqe.html To learn more about the COVID-19 vaccine, we invite you to visit the CDC website for a list of frequently asked questions. https://www.cdc.gov/coronavirus/ 2019-ncov/vaccines/faq.html [facility] Patient Portal Access Instructions: Stay connected with your healthcare team and access your personal medical information anytime with the [facility] Patient Portal. If you would like a full copy of your medical records please contact the [facility] Medical Records Department Friday through Friday between 8a.m. and 4:30p.m. Please follow the directions below to access the portal: 1.Access the email account you provided upon registration to the [facility].2.Look for an invitation email from [facility].3.Open the email and access the invitation link: Accept Invitation to [facility].Fill in the required brian to create your account. Sign into [email or web address] with your username and password that you created in the above steps to stay up to date. You can then view a summary of results, a summary of your visits, and the ability to download your summaries to your computer or send the information securely to a physician. Remember that your healthcare information is confidential, so carefully consider who you will allow to register on the [facility] Patient Portal for access to your information. You can also access the [facility] Patient Portal on the [employer]achary. Simply click on Health Records under Health Data and then click on the [employer] logo. HOW TO SAFELY DISPOSE OF PRESCRIPTION MEDICATIONS Please use one of the following methods to safely dispose of your unused medications. 1.Use a drug disposal kit: the drug disposal pouch allows you to safely discard your old and unused drugs. Ask your nurse to give you one when you are discharged.2.Visit a local take-back location: Many local pharmacies and police departments have programs that collect old and unwanted prescription drugs. Call your local pharmacy or go to http://bit.[employer]/2T8Ku7d to find one close to you.3.Make use of household items: Use cat litter or old coffee grounds to dispose medications if other options are not available. Mix your drugs with these household products, seal them in an airtight container and throw it into the garbage. Call [facility]: [phone] to be sure your drugs can be disposed of in this way. Some medicines may require a different approach.4.Never flush your medications down the toilet. IF YOU HAVE BEEN PRESCRIBED AN OPIOIDS FOR PAIN If you have been prescribed an opioid (such as hydrocodone, oxycodone or morphine), it is critical to understand the possible side effects and risks of opioid pain medications. Even when taken as directed, opioids can have several side effects including: Tolerance, meaning you might need to take more of a medication for the same pain relief. Nausea, vomiting and/or constipation. Sleepiness, dizziness, dry mouth, confusion, depression or itching. Physical dependence, meaning you have withdrawal symptoms when a medication is stopped ? this can develop within a few days. KNOW YOUR RESPONSIBILITIES It is important to know exactly how much and how often to take the opioid pain medications you are prescribed. Never take opioids in higher amounts or more often than prescribed. Do not combine opioids with alcohol or other drugs that cause drowsiness, such as benzodiazepines, also known as benzos, including diazepam and alprazolam, muscle relaxants or sleep aids. Never sell or share prescription opioids. This is illegal. Store opioids in a secure place and out of reach of others (including children, family, friends and visitors). The last page(s) of this document has been signed and retained as a CHART COPY Signatures Patient Education Materials Viral Syndrome (Adult) Medication Leaflets ondansetron (oral) My discharge plan and instructions have been reviewed and explained to me and IAZRA KARRIE D understand my current condition and have read and understand these discharge instructions. I have received a written copy of the plan/instructions. If I have questions, I am aware that I should contact my doctor. 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 MICRO - Microbiology PROCEDURE: Throat Culture [*1] SOURCE: Throat BODY SITE: COLLECTED DATE/TIME: 05/16/2022 10:30 EST RECEIVED DATE/TIME: 05/16/2022 20:03 EST START DATE/TIME: 05/16/2022 20:03 EST FREE TEXT SOURCE: FINAL REPORTS Final Report [] Verified Date/Time/Personnel: 05/18/2022 07:03 EST Normal throat luis present Sensitivity Testing: Not Indicated Comment: The most common etiologic agents in pharyngitis include Group A beta Strep, Adenovirus, EBV, and CMV. A negative bacterial culture may be supplemented with a virus culture if duration of present illness is less than 7 days. PRELIMINARY REPORTS Preliminary Report [] Verified Date/Time/Personnel: 05/17/2022 09:18 EST Negative for upper respiratory pathogens at 24 hours. Performing Locations *1: This test was performed at: [facility], [address] [place] [address], [facility] , [facility] ([place]) 05-16-2022 HCoV 229E RNA JERMAIN+non-probe Ql (Nph) Not Detected *NA* (05/16/22 10:30 AM) Auto Viro/Sero SS 03-04-2022 Note . MICRO - Microbiology PROCEDURE: Blood Culture (bacterial) [*1] SOURCE: Blood BODY SITE: COLLECTED DATE/TIME: 02/27/2022 12:30 EDT RECEIVED DATE/TIME: 02/27/2022 20:12 EDT START DATE/TIME: 02/27/2022 20:12 EDT FREE TEXT SOURCE: FINAL REPORTS Final Report [] Verified Date/Time/Personnel: 03/04/2022 20:59 EDT Blood Culture: No Growth at 5 days. PRELIMINARY REPORTS Preliminary Report [] Verified Date/Time/Personnel: 02/27/2022 20:59 EDT Culture has been received in lab and is no growth to date. Routine cultures are held for 5 days. Performing Locations *1: This test was performed at: [address], [facility] , [facility] ([place]) 03-04-2022 Note . MICRO - Microbiology PROCEDURE: Blood Culture (bacterial) [*1] SOURCE: Blood BODY SITE: COLLECTED DATE/TIME: 02/27/2022 12:30 EDT RECEIVED DATE/TIME: 02/27/2022 20:12 EDT START DATE/TIME: 02/27/2022 20:12 EDT FREE TEXT SOURCE: FINAL REPORTS Final Report [] Verified Date/Time/Personnel: 03/04/2022 20:59 EDT Blood Culture: No Growth at 5 days. PRELIMINARY REPORTS Preliminary Report [] Verified Date/Time/Personnel: 02/27/2022 20:59 EDT Culture has been received in lab and is no growth to date. Routine cultures are held for 5 days. Performing Locations *1: This test was performed at: [address], [address] [place] [address] ([place]) 02-28-2022 Note . MICRO - Microbiology PROCEDURE: Legionella Urine Ag [*1] SOURCE: Urine BODY SITE: COLLECTED DATE/TIME: 02/28/2022 05:46 EDT RECEIVED DATE/TIME: 02/28/2022 14:43 EDT START DATE/TIME: 02/28/2022 14:43 EDT FREE TEXT SOURCE: FINAL REPORTS Final Report [] Verified Date/Time/Personnel: 02/28/2022 15:56 EDT Presumptive negative for L. pneumophila serogroup 1 antigen in urine, suggesting no recent or current infection. Legionnaire's disease cannot be ruled out since other serogroups and species may also cause disease. Performing Locations *1: This test was performed at: [address], [address] , [facility] ([place]) 02-28-2022 Note . MICRO - Microbiology PROCEDURE: Streptococcus Pneumoniae Urine Antig [^1 *1] SOURCE: Urine, Clean Catch BODY SITE: COLLECTED DATE/TIME: 02/28/2022 05:46 EDT RECEIVED DATE/TIME: 02/28/2022 14:43 EDT START DATE/TIME: 02/28/2022 14:43 EDT FREE TEXT SOURCE: FINAL REPORTS Final Report [] Verified Date/Time/Personnel: 02/28/2022 15:56 EDT Presumptive negative for pneumococcal pneumonia, suggesting no current or recent pneumococcal infection. Infection due to Strep pneumoniae cannot be ruled out since the antigen present in the sample may be below the detection limit of the test. Interpretive Data ^1: Streptococcus Pneumoniae Urine Antig This test has not been evaluated on patients taking antibiotics for greater than 24 hours or on patients who have recently completed an antibiotic regimen. The accuracy of this test has not been proven in young children. Performing Locations *1: This test was performed at: [address], [address] , [facility] ([place]) 02-25-2022 SARS-CoV-2 (COVID-19) RNA JERMAIN+probe Ql (Nph) Negative *NA* (02/25/22 4:27 PM) AO Auto Urine SS 12-31-2021 Note ORIGINAL EXAMINATION: TWO XRAY VIEWS OF THE CHEST12/31/2021 11:01 am XR Chest, two views COMPARISON: 08/16/2021 HISTORY: ORDERING SYSTEM PROVIDED HISTORY: Reason for Exam: cough, history of smoking, preop evaluation for back surgery FINDINGS: The lungs show no consolidation, infiltrate or mass. Heart size is normal and mediastinal contours are within normal limits for age and projection. No pneumothorax, pleural fluid, or vascular congestion is seen. The bones show no acute process. Other findings include: Lungs are hyperexpanded. IMPRESSION: No acute cardio pulmonary process. COPD. . Interpreted by: Wilfredo Sawant MD Preliminary Report By: Wilrfedo Sawant MD Electronically signed By Wilfredo Sawant MD Dictated Date: 12/31/2021 4:25:46 PM Prelim Date: 12/31/2021 4:26:11 PM Sign Date: 12/31/2021 4:26:11 PM Ordering Provider: [facility] 12-31-2021 Note ORIGINAL EXAMINATION: TWO XRAY VIEWS OF THE CHEST12/31/2021 11:01 am XR Chest, two views COMPARISON: 08/16/2021 HISTORY: ORDERING SYSTEM PROVIDED HISTORY: Reason for Exam: cough, history of smoking, preop evaluation for back surgery FINDINGS: The lungs show no consolidation, infiltrate or mass. Heart size is normal and mediastinal contours are within normal limits for age and projection. No pneumothorax, pleural fluid, or vascular congestion is seen. The bones show no acute process. Other findings include: Lungs are hyperexpanded. IMPRESSION: No acute cardio pulmonary process. COPD. . Interpreted by: Wilfredo Sawant MD Preliminary Report By: Wilfredo Sawant MD Electronically signed By Wilfredo Sawant MD Dictated Date: 12/31/2021 4:25:46 PM Prelim Date: 12/31/2021 4:26:11 PM Sign Date: 12/31/2021 4:26:11 PM Ordering Provider: [facility] 12-11-2021 Note ORIGINAL Images acquired, not reported on this accession number. [facility] 12-11-2021 Note ORIGINAL Images acquired, not reported on this accession number. [facility] 12-11-2021 Hospital Discharge instructions Patient Education 12/11/2021 08:24:27 Epidural Steroid Injection, Care After Epidural Steroid Injection, Care After Refer to this sheet in the next few weeks. These instructions provide you with information about caring for yourself after your procedure. Your health care provider may also give you more specific instructions. Your treatment has been planned according to current medical practices, but problems sometimes occur. Call your health care provider if you have any problems or questions after your procedure. What can I expect after the procedure? After your procedure, it is common to feel a little discomfort at the injection site. Follow these instructions at home: For 24 hours after the procedure: ?Avoid using heat on the injection site. ?Do not take a tub bath, and do not soak in water. ?Do not drive if you received a medicine to help you relax (sedative). If directed, put ice on the injection site: ?Put ice in a plastic bag. ?Place a towel between your skin and the bag. ?Leave the ice on for 20 minutes, 2 3 times a day. Return to your normal activities as told by your health care provider. Ask your health care provider what activities are safe for you. You may remove the bandage (dressing) after 24 hours. Take dqid-bcz-aouoccg and prescription medicines only as told by your health care provider. Keep all follow-up visits as told by your health care provider. This is important. Contact a health care provider if: You have a fever. You continue to have pain and soreness around the injection site, even after taking ayhm-apn-auwbckp pain medicine. You have severe, sudden, or lasting nausea or vomiting. Get help right away if: You have severe pain at the injection site that is not relieved by medicines. You develop a severe headache or a stiff neck. You become sensitive to light. You have any new numbness or weakness in your legs or arms. You lose control of your bladder or bowel movements. You have trouble breathing. This information is not intended to replace advice given to you by your health care provider. Make sure you discuss any questions you have with your health care provider. Document Released: 09/10/2011 Document Revised: 05/08/2018 Document Reviewed: 09/10/2016 [employer] Patient Education 2020 [employer]. Follow Up Care 11/29/2021 08:24:01 With:NIKHIL SANDS MD Address: [address] [place] [address] [place] [address]- [phone] When: Unknown Comments:cALL dR. Sands WITH ANY QUESTIONS, GO to ED with any urgent issuesFollow-up as scheduled [facility] 12-11-2021 Summary of episode note Discharge Instructions Thank you for allowing [facility] to assist you with your healthcare needs. The following is important discharge information regarding your hospital visit. Your Care Team ALEXIS REICH John MD Your Diagnosis Epidural Injection What to do next Scheduled Follow-Up Appointments Appointment Type When With Where Contact InformationNS OV 12/13/2021 09:00 AM ELLEN BALDWIN MD, C[facility] [address] [facility] [address] [place] [address] PM OV 12/25/2021 08:45 AM EDT NIKHIL SANDS MD [facility] OV 02/27/2022 10:30 AM EDT ALEXIS REICH DO [facility] Follow Up Appointments Follow Up with NIKHIL SANDS MD When Why: cALL dR. Sands WITH ANY QUESTIONS, GO to ED with any urgent issuesFollow-up as scheduled Where: [address] [facility] [address] [facility] Pain [place] [address]- [phone] Allergies Cardizem (Fatigue) DULoxetine (palpitations, fatigue) Vicodin (Blurred vision) Medications Please ask your primary doctor or pharmacist before taking any other medication not listed, including over the counter drugs, herbal medications, vitamins and or supplements as they may interact with your home medications. What How Much When Why Instructions Last Dose Unchanged acetaminophen (acetaminophen 500 mg oral tablet) 2 tab(s) by mouth Three (3) times a day as needed for for pain Unchanged albuterol (albuterol MDI (90 mcg/ inh) CFC free inhalation aerosol) 2 puff(s) by inhalation Every 4 hours as needed for as needed for wheezing COPD (chronic obstructive pulmonary disease) Dyspnea Unchanged albuterol-ipratropium (albuterol-ipratropium 2.5 mg-0.5 mg/ 3 mL inhalation solution) Nebulized inhalation Four (4) times a day Unchanged budesonide (budesonide 0.5 mg/ 2 mL inhalation suspension) 2 Milliliter by inhalation Two (2) times a day Unchanged calcipotriene topical (calcipotriene 0.005% topical cream) 1 application Topical Two (2) times a day Duration: 30 Days Unchanged cholecalciferol (Vitamin D3) See instructions qDay Unchanged clobetasol topical (Clobetasol (Eqv-Temovate) 0.05% topical cream) 1 application Topical Two (2) times a day Duration: 14 Days Unchanged DME (DME MISCellaneous) See instructions Left hand paresthesia dispense one cock up wrist brace for left wrist; dx R20.2 Unchanged DME (DME MISCellaneous) See instructions Left hand paresthesia Ulnar tunnel syndrome of left wrist dispense one cock up wrist brace for left wrist; dx R20.2, G56.22 Unchanged DME (Syringes) See instructions dispense 30 1 mL sterile syringes with 26 g needles 1 ; dx E53.8 Unchanged Misc Medication 2.5L O2 at hs Unchanged naproxen (naproxen 250 mg oral tablet) 1 tab(s) by mouth Two (2) times a day Herniated nucleus pulposus, L5-S1, right Please take this list to your next doctor s visit. Bring all medications you take, including over the counter medications, herbals and other supplements with you to your doctor s visit. Patients and families are reminded to discard old lists and to update any records with all medication providers or retail pharmacies. Education Materials Epidural Steroid Injection, Care After Refer to this sheet in the next few weeks. These instructions provide you with information about caring for yourself after your procedure. Your health care provider may also give you more specific instructions. Your treatment has been planned according to current medical practices, but problems sometimes occur. Call your health care provider if you have any problems or questions after your procedure. What can I expect after the procedure? After your procedure, it is common to feel a little discomfort at the injection site. Follow these instructions at home: For 24 hours after the procedure: ? Avoid using heat on the injection site. ? Do not take a tub bath, and do not soak in water. ? Do not drive if you received a medicine to help you relax (sedative). If directed, put ice on the injection site: ? Put ice in a plastic bag. ? Place a towel between your skin and the bag. ? Leave the ice on for 20 minutes, 2 3 times a day. Return to your normal activities as told by your health care provider. Ask your health care provider what activities are safe for you. You may remove the bandage (dressing) after 24 hours. Take deaq-iij-cdekdmh and prescription medicines only as told by your health care provider. Keep all follow-up visits as told by your health care provider. This is important. Contact a health care provider if: You have a fever. You continue to have pain and soreness around the injection site, even after taking uomv-oto-yedgwdx pain medicine. You have severe, sudden, or lasting nausea or vomiting. Get help right away if: You have severe pain at the injection site that is not relieved by medicines. You develop a severe headache or a stiff neck. You become sensitive to light. You have any new numbness or weakness in your legs or arms. You lose control of your bladder or bowel movements. You have trouble breathing. This information is not intended to replace advice given to you by your health care provider. Make sure you discuss any questions you have with your health care provider. Document Released: 09/10/2011 Document Revised: 05/08/2018 Document Reviewed: 09/10/2016 [employer] Patient Education 2020 [employer]. Additional Information VACCINATE! IT SAVES LIVES! Members of the community who have not yet received the COVID-19 vaccine and would like to receive it can visit one of [facility] vaccine clinics. There are many vaccine clinic locations within the [facility]. For locations and available times, please visit [email or web address] hio.[email or web address] It is important to note that some COVID mobile vaccine clinics are held outdoors and may be canceled in rainy or stormy conditions. To learn more about pediatric vaccinations (ages 5-11), we invite you to visit the [facility] webpage. [email or web address] [email or web address]-Freq [email or web address]-[email or web address].html To learn more about the COVID-19 vaccine, we invite you to visit the [employer] website for a list of frequently asked questions. [email or web address] [facility] Patient Portal Access Instructions: Stay connected with your healthcare team and access your personal medical information anytime with the [facility] Patient Portal.If you would like a full copy of your medical records, please contact the [facility] Medical Records Department, Friday through Friday between 8a.m. and 4:30p.m. Please follow the directions below to access the portal: 1.Access the email account you provided upon registration to the [facility].2.Look for an invitation email from [facility].3.Open the email and access the invitation link: Accept Invitation to [facility]4.Fill in the required brian to create your account. Sign into [email or web address] with your username and password that you created in the above steps to stay up to date. You can then view a summary of results, a summary of your visits, and the ability to download your summaries to your computer or send the information securely to a physician. Remember that your healthcare information is confidential, so carefully consider who you will allow to register on the [employer] Patient Portal for access to your information. You can also access the [employer] Patient Portal on the [employer] zachary. Simply click on Health Records under Health Data and then click on the [employer] logo. HOW TO SAFELY DISPOSE OF PRESCRIPTION MEDICATIONS Please use one of the following methods to safely dispose of your unused medications. 1.Use a drug disposal kit: the drug disposal pouch allows you to safely discard your old and unused drugs. Ask your nurse to give you one when you are discharged.2.Visit a local take-back location: Many local pharmacies and police departments have programs that collect old and unwanted prescription drugs. Call your local pharmacy or go to http://iScreen Vision.Serious Energy/5G4Kp7c to find one close to you.3.Make use of household items: Use cat litter or old coffee grounds to dispose medications if other options are not available. Mix your drugs with these household products, seal them in an airtight container and throw it into the garbage. Call [facility]: [phone] to be sure your drugs can be disposed of in this way. Some medicines may require a different approach.4.Never flush your medications down the toilet. IF YOU HAVE BEEN PRESCRIBED AN OPIOID FOR PAIN If you have been prescribed an opioid (such as hydrocodone, oxycodone or morphine), it is critical to understand the possible side effects and risks of opioid pain medications. Even when taken as directed, opioids can have several side effects including: Tolerance, meaning you might need to take more of a medication for the same pain relief. Nausea, vomiting and/or constipation. Sleepiness, dizziness, dry mouth, confusion, depression or itching. Physical dependence, meaning you have withdrawal symptoms when a medication is stopped, can develop within a few days. KNOW YOUR RESPONSIBILITIES It is important to know exactly how much and how often to take the opioid pain medications you are prescribed. Never take opioids in higher amounts or more often than prescribed. Do not combine opioids with alcohol or other drugs that cause drowsiness, such as benzodiazepines, also known as benzos, including diazepam and alprazolam, muscle relaxants or sleep aids. Never sell or share prescription opioids. This is illegal. Store opioids in a secure place and out of reach of others (including children, family, friends and visitors). The last page of this document has been signed and retained as a CHART COPY. Signatures Patient Education Materials Epidural Steroid Injection, Care After Medication Leaflets My discharge plan and instructions have been reviewed and explained to me and I,CHRISTOPHER OQUENDO understand my current condition and have read and understand these discharge instructions. I have received a written copy of the plan/instructions. If I have questions, I am aware that I should contact my doctor. 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 Digitally Signed by NIKHIL SANDS MD on 12/11/2021 07:28 AM [facility] 08-16-2021 Hospital Discharge instructions Patient Education 08/16/2021 11:17:36 COPD Flare COPD Flare You have had a flare-up of your COPD. COPD (chronic obstructive pulmonary disease) is a common lung disease. It causes your airways to get irritated and narrower. This makes it harder for you to breathe. Emphysema and chronic bronchitis are both types of COPD. This is a long-term (chronic) condition. This means you always have it. Sometimes it gets worse. When this happens, it is called a flare-up. Symptoms of COPD People with COPD may have symptoms most of the time. In a flare-up, your symptoms get worse. These symptoms may mean you are having a flare-up: Shortness of breath, shallow or rapid breathing, or wheezing that gets worse Lung infection Cough that gets worse More mucus, thicker mucus or mucus of a different color Tiredness, less energy, or trouble doing your normal activities Fever Chest tightness Your symptoms don t get better even when you use your normal medicines, inhalers, and nebulizer Trouble talking You feel confused Causes of flare-ups Unfortunately, a flare-up can happen even if you did everything right. And even if you followed your healthcare provider s instructions. Some causes of flare-ups are: Smoking or secondhand smoke Colds, the flu, or respiratory infections Air pollution Sudden change in the weather Dust, irritating chemicals, or strong fumes Not taking your medicines as prescribed Home care Here are some things you can do at home to treat a flare-up: Try not to panic. This makes it harder to breathe, and keeps you from doing the right things. Don t smoke or be around others who are smoking. Try to drink more fluids than normal during a flare-up, unless your healthcare provider has told you not to because of heart and kidney problems. More fluids can help loosen the mucus. Use your inhalers and nebulizer, if you have one, as you have been told to. If you were given antibiotics, take them until they are used up or your provider tells you to stop. It s important to finish the antibiotics, even though you feel better. This will make sure the infection has cleared. If you were given prednisone or another steroid, finish it even if you feel better. Preventing a flare-up Flare-ups happen. But the best way to treat one is to prevent it before it starts. Here are some pointers: Don t smoke or be around others who are smoking. Take your medicines as discussed with your healthcare provider. Talk with your provider about getting a flu shot every year. Also find out if you need a pneumonia shot. If there is a weather advisory warning to stay indoors, try to stay inside when possible. Try to eat healthy, exercise, and get plenty of sleep. Try to stay away from things that normally set you off. These include dust, chemical fumes, hairsprays, or strong perfumes. Follow-up care Follow up with your healthcare provider, or as advised. If a culture was done, you will be told if your treatment needs to be changed. You can call as directed for the results. If X-rays were done, you will be told of any new findings that may affect your care. Call 911 Call 911 if any of these occur: You have trouble breathing You feel confused or it s hard to wake you up You faint or lose consciousness You have a rapid heart rate You have new pain in your chest, arm, shoulder, neck, or upper back When to seek medical advice Call your healthcare provider right away if any of these occur: Wheezing or shortness of breath gets worse You need to use your inhalers more often than normal without relief Fever of 100.4 F (38 C) or higher, or as directed by your healthcare provider Coughing up lots of dark-colored or bloody mucus (sputum) Chest pain with each breath You don't start to get better within 24 hours Swelling of your ankles gets worse Dizziness or weakness [id number] [employer]. [address] [place] [address]. All rights reserved. This information is not intended as a substitute for professional medical care. Always follow your healthcare professional's instructions. Follow Up Care 08/16/2021 10:15:53 With:ALEXIS REICH DO Address: [phone] When:2-4 days [facility] Evaluation + Plan note Future Appointments Appointment Date:11/20/2021 10:30:00 AM Scheduled Provider:ALEXIS REICH DO Location:[facility] Appointment Type:PC OV Future Scheduled TestsXR Spine Lumbar W/Obliques 4 Views 07/18/21 [facility] Evaluation + Plan note Future Appointments Appointment Date:10/19/2021 11:00:00 AM Scheduled Provider:ALEXIS REICH DO Location:[facility] Appointment Type:PC OV Appointment Date:10/26/2021 10:00:00 AM Scheduled Provider:ALEXIS REICH DO Location:[facility] Appointment Type:PC OV Follow Up Appointment Date:11/20/2021 10:30:00 AM Scheduled Provider:ALEXIS REICH DO Location:[facility] Appointment Type:PC OV Future Scheduled TestsXR Spine Lumbar W/Obliques 4 Views 07/18/21 [facility] Evaluation + Plan note Future Appointments Appointment Date:11/20/2021 10:30:00 AM Scheduled Provider:ALEXIS REICH DO Location:[facility] Appointment Type:PC OV Appointment Date:12/13/2021 09:00:00 AM Scheduled Provider:CRISTINA BALDWIN MD Location:[facility] Appointment Type:NS OV Future Scheduled TestsXR Spine Lumbar W/Obliques 4 Views 07/18/21 [facility] Evaluation + Plan note Future Appointments Appointment Date:11/30/2021 07:30:00 AM Scheduled Provider: Location:[facility] Appointment Type:MA Mammogram Screening Bilateral w/ Zack Appointment Date:12/13/2021 09:00:00 AM Scheduled Provider:CRISTINA BALDWIN MD Location:[facility] Appointment Type:NS OV Appointment Date:12/25/2021 08:45:00 AM Scheduled Provider:NIKHIL SANDS MD Location:[facility] PM Appointment Type:PM OV Appointment Date:02/27/2022 10:30:00 AM Scheduled Provider:ALEXIS REICH DO Location:[facility] Appointment Type:PC OV Future Scheduled TestsRubella Antibody 11/20/21Mumps Antibody 11/20/21Rubeola IgG Antibody 11/20/21MA Mammo Screening Bilateral w/ Zack 11/30/21XR Spine Lumbar W/Obliques 4 Views 07/18/21 [facility] Evaluation + Plan note Future Appointments Appointment Date:12/11/2021 08:00:00 AM Scheduled Provider: Location:[facility] Pain Management Appointment Type:PM Inj Spine L/S With Imaging Appointment Date:12/13/2021 09:00:00 AM Scheduled Provider:CRISTINA BALDWIN MD Location:[facility] Appointment Type:NS OV Appointment Date:12/25/2021 08:45:00 AM Scheduled Provider:NIKHIL SANDS MD Location:[facility] PM Appointment Type:PM OV Appointment Date:02/27/2022 10:30:00 AM Scheduled Provider:ALEXIS REICH DO Location:[facility] Appointment Type:PC OV Future Scheduled TestsRubella Antibody 6/14/22Mumps Antibody 6/14/22Rubeola IgG Antibody 6/14/22XR Spine Lumbar W/Obliques 4 Views 07/18/21 [facility] Evaluation + Plan note Future Appointments Appointment Date:12/13/2021 09:00:00 AM Scheduled Provider:CRISTINA BALDWIN MD Location:[facility] Appointment Type:NS OV Appointment Date:12/25/2021 08:45:00 AM Scheduled Provider:NIKHIL SANDS MD Location:[facility] PM Appointment Type:PM OV Appointment Date:02/27/2022 10:30:00 AM Scheduled Provider:ALEXIS REICH DO Location:[facility] Appointment Type:PC OV Future Scheduled TestsRubella Antibody 6/14/22Mumps Antibody 6/14/22Rubeola IgG Antibody 6/22XR Spine Lumbar W/Obliques 4 Views 07/18/21 [facility] Evaluation + Plan note Future Appointments Appointment Date:12/25/2021 08:45:00 AM Scheduled Provider:NIKHIL SANDS MD Location:[facility] PM Appointment Type:PM OV Appointment Date:02/27/2022 10:30:00 AM Scheduled Provider:ALEXIS REICH DO Location:[facility] Appointment Type:PC OV Future Scheduled TestsRubella Antibody 6/14/22Mumps Antibody 6/14/22Rubeola IgG Antibody 6//22XR Spine Lumbar W/Obliques 4 Views 07/18/21 [facility] Evaluation + Plan note Future Appointments Appointment Date:12/27/2021 01:00:00 PM Scheduled Provider:ALEXIS REICH DO Location:[facility] Appointment Type:PC OV Pre Op Appointment Date:02/27/2022 10:30:00 AM Scheduled Provider:ALEXIS REICH DO Location:[facility] Appointment Type:PC OV Future Scheduled TestsRubella Antibody 6/14/22Mumps Antibody 6/14/22Rubeola IgG Antibody 6/14/22XR Spine Lumbar W/Obliques 4 Views 07/18/21 [facility] Evaluation + Plan note Future Appointments Appointment Date:02/27/2022 10:30:00 AM Scheduled Provider:ALEXIS REICH DO [facility] Appoint[facility] Type:PC OV Future Scheduled TestsRubella Antibody 6/14/22Mumps Antibody 6/14/22Rubeola IgG Antibody 6/14/22XR Spine Lumbar W/Obliques 4 Views 07/18/21 [facility] Evaluation + Plan note Future Appointments Appointment Date:01/29/2022 10:00:00 AM Scheduled Provider:CRISTINA BALDWIN MD Location:[facility] Appointment Type:NS Post Op Appointment Date:02/27/2022 10:30:00 AM Scheduled Provider:ALEXIS REICH DO [facility] Appoint[facility] Type:PC OV Future Scheduled TestsRubella Antibody 6/14/22Mumps Antibody 6/14/22Rubeola IgG Antibody 6/14/22XR Spine Lumbar W/Obliques 4 Views 07/18/21 [facility] Evaluation + Plan note Future Appointments Appointment Date:03/06/2022 02:00:00 PM Scheduled Provider:ALEXIS REICH DO [facility] Appointment Type:PC OV Hospital Follow-Up Future Scheduled TestsRubella Antibody 6/14/22Mumps Antibody 6/14/22Rubeola IgG Antibody 6/14/22XR Spine Lumbar W/Obliques 4 Views 07/18/21 [facility] Evaluation + Plan note Future Appointments Appointment Date:04/03/2022 10:30:00 AM Scheduled Provider:ALEXIS REICH DO [facility] Appointment Type:PC OV Future Scheduled TestsRubella Antibody 6/14/22Mumps Antibody 6/14/22Rubeola IgG Antibody 6/14/22XR Spine Lumbar W/Obliques 4 Views 07/18/21 [facility] Evaluation + Plan note Future Appointments Appointment Date:11/01/2022 10:30:00 AM Scheduled Provider:ALEXIS REICH DO [facility] App[facility] Type:PC Wellness Annual Future Scheduled TestsRubella Antibody 6/14/22Mumps Antibody 11/20/21Rubeola IgG Antibody 11/20/21XR Chest 2 Views (PA & Lateral) 04/18/22XR Spine Lumbar W/Obliques 4 Views 07/18/21 [facility] Evaluation + Plan note Future Appointments Appointment Date:11/01/2022 10:30:00 AM Scheduled Provider:ALEXIS REICH DO Location:[facility] Appointment Type:PC Wellness Annual Future Scheduled TestsRubella Antibody 11/20/21Mumps Antibody 11/20/21Rubeola IgG Antibody 11/20/21XR Chest 2 Views (PA & Lateral) 04/18/22 [facility] Evaluation + Plan note Future Appointments Appointment Date:02/28/2023 10:30:00 AM Scheduled Provider:ALEXIS REICH DO Location:[facility] Appointment Type:PC OV Future Scheduled TestsVitamin B12 Level 11/25/22A1C Hemoglobin 11/25/22Complete Blood Count 11/25/22Lipid Profile 11/25/22Vitamin D Level 11/25/22Complete Metabolic Panel 11/25/22MA Mammo Screening Bilateral w/ Zack 11/25/22XR Chest 2 Views (PA & Lateral) 04/18/22 [facility] Hospital course Narrative No data available for this section [facility] Hospital Discharge instructions No data available for this section [facility] Progress note No data available for this section [facility] Summary Purpose Family History No Family History Records Found No data available for this section No Family History Records Found Advance Directives No Advanced Directives Records FoundNo Advanced Directives Records Found Additional Source Comments INFORMATION SOURCE (unrecogn ized section and content) DATE CREATED AUTHOR AUTHOR'S ORGANIZ ATION 12/27/2022 [facility] ([place]) Care Team (unrecognized sect ion and content) Personnel Name: ALEXIS REICH DO Address: [address] [place] [address]- Personnel Name: ALEXIS REICH DO Address: [address] [place] [address]- Care Team Personnel Name: ALEXIS REICH DO Position: P4 Physician - Primary Care Member Role: Primary Care Physician Address: Address: [address] [place] [address]- Care Team Related Persons Name: ALENA OQUENDO Address: Home [address], [place] [id number] Care Team Personnel Name: ALEXIS REICH DO Position: P4 Physician - Primary Care Member Role: Primary Care Physician Address: Address: [address] [place] [address]- Name: TARUN CAMARENA MD Position: ED Physician Member Role: ED Physician Address: Address: [facility] [address] [place] [address]- [place] Name: SAVITA Amaya Position: AO RN Member Role: ED RN Care Team Related Persons Name: ALENA OQUENDO Address: Home [address], [place] [id number] Care Team Personnel Name: ALEXIS REICH DO Position: P4 Physician - Primary Care Member Role: Primary Care Physician Address: Address: [address] [place] [address]- Care Team Related Persons Name: ALENA OQUENDO Address: Home [address] [place], [place] [id number] Care Team Personnel Name: ALEXIS REICH DO Position: P4 Physician - Primary Care Member Role: Primary Care Physician Address: Address: [address] [place] [address]- [place] Name: Santy Veloz RN Position: AO RN Member Role: ED RN Name: MD FUNMI, MATT QUINTERO Position: ED Physician Member Role: ED Physician Address: Address: [address] [place] [address]- [place] Care Team Related Persons Name: ALENA OQUENDO Address: Home [address], [place] [id number] Care Team Personnel Name: ALEXIS REICH DO Position: P4 Physician - Primary Care Member Role: Primary Care Physician Address: Address: [address] [place] [address]- Care Team Related Persons Name: ALENA OQUENDO Address: Home [address], [place] [id number] Care Team (unrecognized sect ion and content) Personnel Name: ALEXIS REICH DO Address: Address: [address] [place] [address]- Personnel Name: ALEXIS REICH DO Address: Address: [address] [place] [address]- Care Team Personnel Name: ALEXIS REICH DO Position: P4 Physician - Primary Care Med Service: Active Provider Member Role: Primary Care Physician Address: Address: [address] [place] [address]- Care Team Related Persons Name: ALENA OQUENDO Address: Home [address], [place] [id number] Care Team Personnel Name: ALEXIS REICH DO Position: P4 Physician - Primary Care Med Service: Active Provider Member Role: Primary Care Physician Address: Address: [address] [place] [address]- Care Team Related Persons Name: ALENA OQUENDO Address: Home [address], [place] [id number] Care Team Personnel Name: ALEXIS REICH DO Position: P4 Physician - Primary Care Med Service: Active Provider Member Role: Primary Care Physician Address: Address: [address] [place] [address] [place] Care Team Related Persons Name: ALENA OQUENDO Address: Home [address], [place] [id number] Care Team Personnel Name: ALEXIS RECIH DO Position: P4 Physician - Primary Care Med Service: Active Provider Member Role: Primary Care Physician Address: Address: [address] [place] [address]- [place] Care Team Related Persons Name: ALENA OQUENDO Address: [address] [place] [id number] Care Team Personnel Name: ALEXIS REICH DO Position: P4 Physician - Primary Care Med Service: Active Provider Member Role: Primary Care Physician Address: Address: [address] [place] [address]- Care Team Related Persons Name: ALENA OQUENDO Address: Home [address] [place] [place] [id number] Care Team Personnel Name: ALEXIS REICH DO Position: P4 Physician - Primary Care Med Service: Active Provider Member Role: Primary Care Physician Address: Address: [address] [place] [address]- Care Team Related Persons Name: ALENA OQUENDO Address: Home [address] [place] [id number] Care Team Personnel Name: ALEXIS REICH DO Position: P4 Physician - Primary Care Med Service: Active Provider Member Role: Primary Care Physician Address: Address: [address] [place] [address] [place] Care Team Related Persons Name: ALENA OQUENDO Address: Home [address] [place] [place] [id number] Care Team Personnel Name: ALEXIS REICH DO Position: P4 Physician - Primary Care Member Role: Primary Care Physician Address: Address: [address] [place] [address] [place] Care Team Related Persons Name: ALENA OQUENDO Address: Home [address] [place] [place] [id number] Care Team Personnel Name: ALEXIS REICH DO Position: P4 Physician - Primary Care Med Service: Active Provider Member Role: Primary Care Physician Address: Address: [address] [place] [address]- Care Team Related Persons Name: ALENA OQUENDO Address: Home [address] [place] [id number] Care Team Personnel Name: ALEXIS REICH DO Position: P4 Physician - Primary Care Member Role: Primary Care Physician Address: Address: [address] Care Team Related Persons Name: ALENA OQUENDO Address: Home [address], [place] [phone] Care Team Personnel Name: ALEXIS REICH DO Position: P4 Physician - Primary Care Member Role: Primary Care Physician Address: Address: [address] [place] [address] Care Team Related Persons Name: ALENA OQUENDO Address: Home [address], [place] [id number] Care Team Personnel Name: ALEXIS REICH DO Position: P4 Physician - Primary Care Member Role: Primary Care Physician Address: Address: [address] [place] [address] Care Team Related Persons Name: ALENA OQUENDO Address: Home [address], [place] [id number] Care Team Personnel Name: ALEXIS REICH DO Position: P4 Physician - Primary Care Member Role: Primary Care Physician Address: Address: [address] [place] [address] Care Team Related Persons Name: ALENA OQUENDO Address: Home [address], [place] [phone] Care Team Personnel Name: ALEXIS REICH DO Position: P4 Physician - Primary Care Member Role: Primary Care Physician Address: Address: [address] [place] [address] Care Team Related Persons Name: ALENA OQUENDO Address: Home [address], [place] [id number] FOR RECORDS PERTAINING TO PATIENTS WHO ARE OR HAVE BEEN ENROLLED IN A CHEMICAL DEPENDENCY/SUBSTANCEABUSE PROGRAM, SOME INFORMATION MAY BE OMITTED. This clinical summary was aggregated from multiple sources. Caution should be exercised in using it in the provision of clinical care. This summary normalizes information from multiple sources, and as a consequence, information in this document may materially change the coding, format and clinical context of patient data. In addition, data may be omitted in some cases. CLINICAL DECISIONS SHOULD BE BASED ON THE PRIMARY CLINICAL RECORDS. [employer] [facility]. provides no warranty or guarantee of the accuracy or completeness of information in this document.
[2023-07-05 00:06] LABS: Hepatitis B Core Ab Total Negative (Negative); QNTFERON TB Mitogen Value > 10.00 IU/mL (.); QNTFERON TB Nil Value 0.25 IU/mL (.); QNTFERON TB1+ Ag Value 0.13 IU/mL (.); QNTFERON TB2+ Ag Value 0.13 IU/mL (.); QNTIFERON TB Positive Criteria Negative (Negative)
== END | disposition home or self-care (01) ==
LOC: MTLAB 08:26
PROVIDERS: PCP Student in an Organized Health Care Education/Training Program; Referring Provider Physician Assistant Medical; Visit Provider Physician Assistant Medical
DX: L40.0 Psoriasis vulgaris (principal); L40.59 Other psoriatic arthropathy; Z79.899 Other long term (current) drug therapy
CPT/HCPCS: 36415; 86480; 86704

== ENCOUNTER → 2023-07-24 | Outpatient (CLI) | payer OTHER, SELFPAY ==
--- NOTE | 2023-07-24 | LES_PTH ---
PATHOLOGY RESULTS PATIENT: CHRISTOPHER OQUENDO LOC: [facility] U#:[id number] AGE/SX: 47/F ROOM: RE07/24/[address]: Dr. Bruce Glez MD : 1975 BED: DIS: 07/24/2023 SPEC #: [id number] RECD: 07/25/23 07:27 STATUS: YUE REQ #: [id number] CASSIA: 07/24/23 00:[address]: Bruce Glez DEPT: SURGICAL PATHOLOGY RECD BY: Arleen Hanna ENTERED: 07/25/23 07:28 SP TYPE: Lesion OTHR DR: Dr. Nando Sawyer DO Tissues: Tongue, NOS Procedures: Special Stain Group I Surgery Specimen Level IV GMS Stain (control) HEADER OPERATION: Tongue excision PRE-OP DIAGNOSIS: Tongue neoplasm TISSUE SUBMITTED: Tongue lesion MICROSCOPIC DIAGNOSIS Lesion of tongue, biopsy: Squamous papilloma. AM:tiffany 07/28/2023 COMMENT Occasional fungal organisms are noted. GMS stain with matched control was used in the evaluation of this case. Case has been reviewed in consultation with Dr. Segovia who concurs with the above diagnosis. IDC:[email or web address] MICROSCOPIC DESCRIPTION Slides are reviewed. GROSS DESCRIPTION Received in fixative is one container labeled with the patient's name and designated tongue lesion. The specimen consists of a piece of carlos mucosal tissue measuring 0.3 x 0.2 x 0.1 cm. The entire specimen is submitted in one cassette. / JAYLYN:tiffany 07/25/2023 TC:5 CPT: 56394, 23885
--- OUTSIDE RECORDS SUMMARY | 2023-07-24 20:41 | XMS RPT_ITS | CCD ---
Author Name Unknown Address [address] [place] [address] Organization [facility] Care Team Providers Care Pressroom Worker Name Role Phone LORENAMILLIE ORDONEZ ALEXIS Primary Care Physician [phone] HALKO DO, ALEXIS Primary Care Unavailable TARUN CAMARENA MD Attending Unavailable HALKO DO, ALEXIS Primary Care Unavailable FUNMI QUINTERO, DR GUTIERREZ Attending Unavailab le HALKO DO, ALEXIS Primary Care Unavailable CRISTINA BALDWIN MD Attending Unavailable FRANSISCO FLOYD Attending Unavailable HALKO DO, ALEXIS Primary Care Unavailable HALKO DO, ALEXIS Primary Care Unavailable MAST SNOW PLOW TRACTOR OPERATOR-SPONGE BUFFER, ESTEFANIA Attending Unavailabl e HALKO DO, ALEXIS Primary Care Unavailable MAST SNOW PLOW TRACTOR OPERATOR-SPONGE BUFFER, ESTEFANIA Attending Unavailabl e HALKO DO, ALEXIS [...] HALKO DO, ALEXIS Primary Care Unavailable SEFFENS SNOW PLOW TRACTOR OPERATOR-SPONGE BUFFER, MARK Attending Connor salmeron HALKO DO, ALEXIS Primary Care Unavailable MAST SNOW PLOW TRACTOR OPERATOR-SPONGE BUFFER, ESTEFANIA Attending Unavailabl e HALKO DO, ALEXIS Primary Care Unavailable HALKO DO, ALEXIS Attending Unavailable MATT , DR FINCH Attending Unavailable KENNEN SNOW PLOW TRACTOR OPERATOR-SPONGE BUFFER, ABIOLA Rcio Referring Perrigordon salmeron ABIOLA HAQUE Admitting Connor dumontALEXIS Ramirez DO Primary Care Unavailable Allergies Allergy Classification Reported Allergen(s) Allergy Type Date of Onset Reaction(s) Facility (1 source) Acetaminophen / HYDROcodone; Translations: [HYDROCODONE-ACET AMINOPHEN] Drug Allergy 0 [facility] Repository (1 source) Codeine; Translations: [CODEINE] Drug Allergy 0 [facility] (20 sources) Acetaminophen / HYDROcodone; Translations: [acetaminophen-hy drocodone] Drug Allergy Blurred vision [facility] (20 sources) dilTIAZem; Translations: [diltiazem] Drug Allergy Fatigue (finding) [facility] (20 sources) DULoxetine; Translations: [duloxetine] Drug Allergy Palpitations (finding) [facility] Medications Current Medications Medication Drug Class(es) Dates [...] q4h, # 30 EA, 0 Refill(s), Pharmacy: [facility]/pharmacy #[id number], 160, cm, 12/11/22 16:01:00 EDT, Height, kg, [...] BID, # 360 mL, 1 Refill(s), Pharmacy: [facility]/pharmacy #[id number], 161.5, cm, 04/03/22 10:18:00 EDT, Height [...] Non-Invasive [address] MATT CHOUDHARY MD [facility] 12-06-2022 22:30-0400 Heart rate 75 /min DR MATT CHOUDHARY MD [facility] 12-06-2022 22:30-0400 Respiratory rate 16 /min DR MATT CHOUDHARY MD [facility] 12-06-2022 22:30-0400 Systolic Blood Pressure Non-Invasive [address] MATT CHOUDHARY MD [facility] 12-06-2022 21:41-0400 Heart rate 86 /min DR MATT CHOUDHARY MD [facility] 12-06-2022 21:41-0400 Respiratory rate 18 /min DR MATT CHOUDHARY MD [facility] 12-06-2022 21:03-0400 Heart rate 90 /min DR MATT CHOUDHARY MD [facility] 12-06-2022 21:03-0400 Respiratory rate 18 /min DR MATT CHOUDHARY MD [facility] 12-06-2022 20:26-0400 Body height 162.[address] MATT CHOUDHARY MD [facility] 12-06-2022 20:26-0400 Body temperature 98.24 [degF] DR MATT CHOUDHARY MD [facility] 12-06-2022 20:26-0400 Body weight 59.[address] MATT CHOUDHARY MD [facility] 12-06-2022 20:26-0400 Diastolic Blood Pressure Non-Invasive [address] MATT CHOUDHARY MD [facility] 12-06-2022 20:26-0400 Systolic Blood Pressure Non-Invasive [address] MATT CHOUDHARY MD [facility] 08-26-2022 10:42-0400 Body temperature 97.16 [degF] TARUN CAMARENA MD [facility] 08-26-2022 10:42-0400 Body weight 61.5 kg TARUN CAMARENA MD [facility] 08-26-2022 10:42-0400 Diastolic Blood Pressure Non-Invasive 62 1 TARUN CAMARENA MD [facility] 08-26-2022 10:42-0400 Heart rate 103 /min TARUN CAMARENA MD [facility] 08-26-2022 10:42-0400 Respiratory rate 16 /min TARUN CAMARENA MD [facility] 08-26-2022 10:42-0400 Systolic Blood Pressure Non-Invasive 101 1 TARUN CAMARENA MD [facility] 06-08-2022 18:58-0500 Body temperature 98.24 [degF] DR FRANSISCO FLOYD DO [facility] 06-08-2022 18:58-0500 Diastolic Blood Pressure Non-Invasive [address] FRANSISCO FLOYD DO [facility] 06-08-2022 18:58-0500 Heart rate 75 /min DR FRANSISCO FLOYD DO [facility] 06-08-2022 18:58-0500 Respiratory rate 18 /min DR FRANSISCO FLOYD DO [facility] 06-08-2022 18:58-0500 Systolic Blood Pressure Non-Invasive [address] FRANSISCO FLOYD DO [facility] 12-31-2021 09:57-0400 Body height [address] CRISTINA BALDWIN MD [facility] 12-31-2021 09:57-0400 Body temperature 98.42 [degF] DR CRISTINA BALDWIN MD [facility] 12-31-2021 09:57-0400 Body weight 58.[address] CRISTINA BALDWIN MD [facility] 12-31-2021 09:57-0400 diastolic 81 mm[Hg] DR CRISTINA BALDWIN MD [facility] 12-31-2021 09:57-0400 Heart rate 62 /min DR CRISTINA BALDWIN MD [facility] 12-31-2021 09:57-0400 systolic 128 mm[Hg] DR CRISTINA BALDWIN MD [facility] 12-11-2021 08:21-0400 Heart rate 72 /min NIKHIL SANDS MD [facility] 12-11-2021 08:17-0400 Body temperature 97.88 [degF] NIKHIL SANDS MD [facility] 12-11-2021 08:17-0400 Diastolic Blood Pressure NBP 67 1 NIKHIL SANDS MD [facility] 12-11-2021 08:17-0400 Heart rate 75 /min NIKHIL SANDS MD [facility] 12-11-2021 08:17-0400 Systolic Blood Pressure NBP 104 1 NIKHIL SANDS MD [facility] 12-11-2021 07:46-0400 Body height 162.6 cm NIKHIL SANDS MD [facility] 12-11-2021 07:46-0400 Body temperature 97.16 [degF] NIKHIL SANDS MD [facility] 12-11-2021 07:46-0400 Body weight 59.1 kg NIKHIL SANDS MD [facility] 12-11-2021 07:46-0400 Diastolic Blood Pressure NBP 62 1 NIKHIL SANDS MD [facility] 12-11-2021 07:46-0400 Heart rate 79 /min NIKHIL SANDS MD [facility] 12-11-2021 07:46-0400 Respiratory rate 16 /min NIKHIL SANDS MD [facility] 12-11-2021 07:46-0400 Systolic Blood Pressure NBP 107 1 NIKHIL SANDS MD [facility] 08-16-2021 11:39-0500 Diastolic blood pressure 54 mm[Hg] GIOVANNI RHODES MD [facility] 08-16-2021 11:39-0500 Heart rate 90 /min GIOVANNI RHODES MD [facility] 08-16-2021 11:39-0500 Respiratory rate 19 /min GIOVANNI RHODES MD [facility] 08-16-2021 11:39-0500 Systolic blood pressure 90 mm[Hg] GIOVANNI RHODES MD [facility] 08-16-2021 10:50-0500 Diastolic blood pressure 61 mm[Hg] GIOVANNI RHODES MD [facility] 08-16-2021 10:50-0500 Systolic blood pressure 95 mm[Hg] GIOVANNI RHODES MD [facility] 08-16-2021 10:44-0500 Diastolic blood pressure 68 mm[Hg] GIOVANNI RHODES MD [facility] 08-16-2021 10:44-0500 Heart rate 85 /min GIOVANNI RHODES MD [facility] 08-16-2021 10:44-0500 Respiratory rate 20 /min GIOVANNI RHODES MD [facility] 08-16-2021 10:44-0500 Systolic blood pressure 87 mm[Hg] GIOVANNI RHODES MD [facility] 08-16-2021 10:15-0500 Body height 162.6 cm GIOVANNI RHODES MD [facility] 08-16-2021 10:15-0500 Body temperature 98.78 [degF] GIOVANNI RHODES MD [facility] 08-16-2021 10:15-0500 Body weight 59 kg GIOVANNI RHODES MD [facility] 08-16-2021 10:15-0500 diastolic 118 mm[Hg] GIOVANNI RHODES MD [facility] 08-16-2021 10:15-0500 Heart rate 88 /min GIOVANNI RHODES MD [facility] 08-16-2021 10:15-0500 Respiratory rate 24 /min GIOVANNI RHODES MD [facility] 08-16-2021 10:15-0500 systolic 135 mm[Hg] GIOVANNI RHODES MD [facility] Encounters Encounter Date Encounter Type Care Provider Facility Start: 12-24-2022 End: 12-25-2022 ambulatory ALEXIS REICH DO Facility:B Start: 12-24-2022 End: 12-24-2022 Patient encounter procedure ALEXIS REICH DO [facility] Start: 12-06-2022 End: 12-07-2022 Emergency department patient visit ALEXIS REICH DO Facility:B Start: 12-06-2022 End: 12-06-2022 Emergency department patient visit DR MATT CHOUDHARY MD [facility] Start: 08-30-2022 End: 09-04-2022 ambulatory ALEXIS REICH DO Facility:B Start: 08-30-2022 End: 09-03-2022 Outreach Lab ALEXIS REICH DO [facility] Start: 08-26-2022 End: 08-26-2022 Emergency department patient visit ALEXIS CARRILLOKO DO Facility:B Start: 08-26-2022 End: 08-26-2022 Emergency department patient visit TARUN CAMARENA MD [facility] Start: 08-19-2022 End: 08-24-2022 ambulatory ALEXIS LORENAKO DO Facility:B Start: 08-19-2022 End: 08-20-2022 ambulatory ALEXIS HALKO DO Facility:B Start: 08-19-2022 End: 08-23-2022 Outreach Lab ESTEFANIA MAST SNOW PLOW TRACTOR OPERATOR-SPONGE BUFFER [facility] Start: 08-16-2022 End: 08-17-2022 ambulatory ALEXIS CARRILLOKO DO Facility:B Start: 08-16-2022 End: 08-16-2022 Patient encounter procedure ESTEFANIA MAST SNOW PLOW TRACTOR OPERATOR-SPONGE BUFFER [facility] Start: 06-08-2022 End: 06-08-2022 Emergency department patient visit FRANSISCO FLOYD Facility:B Start: 06-08-2022 End: 06-08-2022 Emergency department patient visit DR FRANSISCO FLOYD DO [facility] Start: 05-16-2022 End: 05-21-2022 ambulatory ALEXIS CARRILLOKO DO Facility:B Start: 05-16-2022 End: 05-20-2022 Outreach Lab MARK BROWN SNOW PLOW TRACTOR OPERATOR-SPONGE BUFFER [facility] Start: 04-18-2022 End: 04-19-2022 ambulatory ALEXIS LORENAKO DO Facility:B Start: 04-18-2022 End: 04-18-2022 Patient encounter procedure ALEXIS LORENAKO DO [facility] Start: 04-02-2022 End: 04-03-2022 ambulatory ALEXIS REICH DO Facility:B Start: 04-02-2022 End: 04-02-2022 Patient encounter procedure ALEXIS CARRILLOKO DO [facility] Start: 02-27-2022 End: 03-01-[address] JOSETTE GUTIERREZ DO Facility:B Start: 02-25-2022 End: 03-02-2022 ambulatory ALEXIS REICH DO Facility:B Start: 02-25-2022 End: 03-01-2022 Outreach Lab ALEXIS REICH DO [facility] Start: 01-29-2022 End: 01-30-2022 ambulatory ALEXIS CARRILLOKO DO Facility:A Start: 01-29-2022 End: 01-29-[address] CRISTINA BALDWIN MD [facility] Start: 01-24-2022 End: 01-25-2022 ambulatory ALEXIS REICH DO Facility:A Start: 01-24-2022 End: 01-24-2022 Patient encounter procedure KERRI STEWARD SNOW PLOW TRACTOR OPERATOR-SPONGE BUFFER [facility] Start: 01-11-2022 End: 01-11-2022 ambulatory CRISTINA BALDWIN MD Facility:A Start: 12-31-2021 End: 01-01-2022 ambulatory ALEXIS LORENAKO DO Facility:A Start: 12-31-2021 End: 12-31-2021 Patient encounter procedure ALEXIS CARRILLOKO DO [facility] Start: 12-31-2021 End: 12-31-[address] CRISTINA BALDWIN MD [facility] Start: 12-25-2021 End: 12-25-[address] CRISTINA BALDWIN MD [facility] Start: 12-13-2021 End: 12-13-[address] CRISTINA BALDWIN MD [facility] Start: 12-11-2021 End: 12-11-2021 Minor Procedure NIKHIL SANDS MD [facility] Start: 11-30-2021 End: 11-30-2021 Patient encounter procedure ALEXIS REICH DO [facility] Start: 11-27-2021 End: 11-27-2021 Patient encounter procedure NIKHIL SANDS MD [facility] Start: 11-08-2021 End: 01-01-[address] CRISTINA BALDWIN MD [facility] Start: 11-01-2021 End: 11-01-[address] CRISTINA BALDWIN MD [facility] Start: 10-17-2021 End: 10-17-2021 Patient encounter procedure ALEXIS REICH DO [facility] Start: 08-16-2021 End: 08-16-2021 Emergency department patient visit GIOVANNI RHODES MD [facility] Start: 07-20-2021 End: 07-20-2021 Patient encounter procedure ALEXIS REICH DO [facility] Start: 07-18-2021 End: 07-18-2021 Patient encounter procedure ALEXIS REICH DO [facility] Start: 04-20-2018 End: 04-21-2018 Patient encounter procedure [facility] Procedures Date Procedure Procedure Detail Performing Clinician Start: 01-11-2022 Laminectomy and discectomy KERRI FLIGHT SNOW PLOW TRACTOR OPERATOR-SPONGE BUFFER Start: 12-11-2021 PM Inj Spine L/S [facility] SN 1 NIKHIL SANDS MD Immunizations Immunization Date Immunization Notes Care Provider Fa cili 11-20-2021 tetanus toxoid, redu cynthia diphtheria toxoid, and acellular pertussis vaccine, adsorbed; Translations: [Boostrix (Tdap)] NIKHIL SANDS MD [facility] 07-23-2019 pneumococcal polysaccharide vaccine, 23 valent ALEXIS REICH DO [facility] Payers Date Payer Category Payer Unknown [id number] 1975 Unknown [id number] 2.16.8 40.1.086789.3.579.2 1975 Unknown [id number] 2.16.8 40.1.035286.3.579. 1977 Unknown [id number] 2.16.8 40.1.441654.3.579. 1977 Unknown [id number] 2.16.8 40.1.558668.3.579.2 1977 Unknown [id number] 2.16.8 40.1.346200.3.579.2 1977 Unknown [id number] 2.16.8 40.1.977208.3.579.2. 1977 Unknown [id number] 2.16.8 40.1.355553.3.579.2. 1977 Unknown [id number] 2.16.8 40.1.125928.3.579.2. 1977 Unknown [id number] 2.16.8 40.1.823564.3.579.2. 1977 Unknown [id number] 2.16.8 40.1.895009.3.579.2. 1977 Unknown [id number] 2.16.8 40.1.974269.3.579.2. 1977 Unknown [id number] 2.16.8 40.1.857364.3.579.2. 1977 Unknown [id number] 2.16.8 40.1.116112.3.579.2. 1977 Unknown [id number] 2.16.8 40.1.103687.3.579.2. 1977 Unknown [id number] 2.16.8 40.1.339542.3.579.2. 1977 Unknown [id number] 2.16.8 40.1.903126.3.579.2. 1977 Unknown [id number] 2.16.8 40.1.790234.3.579.2. 1977 Unknown [id number] 2.16.8 40.1.023999.3.579.2.627 Social History Date Type Detail Facility Start: 12-31-2020 End: 12-31-2021 Heavy tobacco smoker (finding) [facility] Sex Assigned At Female [facility] Functional Status Date Assessment Result Facility 12-06-2022 Functional Status Independent [facility] 12-06-2022 Functional Status Standard Safet y ID band on, Allergy Band on, Call device within reach, Bed in low position, Wheels locked, Upper/Half-Length side-rails up, personal items within reach, Visitor at bedside [facility] 12-11-2021 Functional Status Ambulating in aguilar, Ambulating in room, Awake [facility] 11-08-2021 Functional Status Home Living Ad ditional [...] NT d/t pos results in clinical chart [facility] Mental Status Date Assessment Result Facility 12-06-2022 Mental Status Orientation Oriented x 4 [facility] 12-06-2022 Mental Status [facility] 12-11-2021 Mental Status Oriented x 4 [facility] Clinical Notes 08-16-2021 to 12-07-2022 RadiologyRadiologyRadiologyLaboratoryRadiologyLaboratoryRadiologyLaboratoryRadio logyLaboratoryRadiologyLaboratoryRadiologyLaboratoryRadiologyLaboratoryRadiology [...] your ankles gets worse Dizziness or weakness [phone] [employer]. [address] [place] [address]. All rights reserved. This information is not intended as a substitute for professional medical care. Always follow your healthcare professional's instructions. Follow Up Care 12/06/2022 20:25:36 With:ALEXIS REICH DO Address: [address] [place] [phone] When:2-4 days [facility] 12-06-2022 Note Discharge Instructions Thank you for allowing [facility] to assist you with your healthcare needs. [...] REICH DO When Within 2-4 days Where: [address] [place] [phone] Allergies Cardizem (Fatigue) DULoxetine (Fatigue, Palpitations) Vicodin [...] Vitamin C 500 mg, Calcium 55 mg, [place] Bioflavonoid complex 10 mg Unchanged budesonide (budesonide [...] your ankles gets worse Dizziness or weakness [phone] [employer]. [address] [place] [address]. All rights reserved. This information is not intended as a substitute for professional medical care. Always follow your healthcare professional's instructions. Additional Information VACCINATE! IT SAVES LIVES! Members of the community who have not yet received the COVID-19 vaccine and would like to receive it can visit one of [facility] vaccine clinics. There are many vaccine clinic locations within the [facility]. For locations and available times, please visit [email or web address] It is important to note that some COVID mobile vaccine clinics are held outdoors and may be canceled in rainy or stormy conditions. To learn more about pediatric vaccinations (ages 5-11), we invite you to visit the [facility] webpage. [email or web address] To learn more about the COVID-19 vaccine, we invite you to visit the CDC website for a list of frequently asked questions. https://www.cdc.gov/coronavirus/ 2019-ncov/vaccines/faq.html [facility] Patient Portal Access Instructions: Stay connected with your healthcare team and access your personal medical information anytime with the [employer] Patient Portal. If you would like a full copy of your medical records please contact the [facility] Medical Records Department Friday through Friday between 8a.m. and 4:30p.m. Please follow the directions below to access the portal: 1.Access the email account you provided upon registration to the hospital.2.Look for an invitation email from [facility].3.Open the email and access the invitation link: Accept Invitation to [employer]4.Fill in the required brian to create your account. Sign into www.[email or web address] with your username and password that you [...] you will allow to register on the [employer] Patient Portal for access to your information. You can also access the [employer] Patient Portal on the [employer]. Simply click on Health Records under Health Data and then click on the [employer] logo. HOW TO SAFELY DISPOSE OF PRESCRIPTION [...] Call your local pharmacy or go to [email or web address] to find one close to you.3.Make use of household items: Use cat litter or old coffee grounds to dispose medications if other options are not available. Mix your drugs with these household products, seal them in an airtight container and throw it into the garbage. Call [facility]: [phone] to be sure your drugs can be [...] aware that I should contact my doctor. Patient/Bowling Ball Mold Assembler Signature: Date/Time: Relationship to Patient: Witness Name/Signature: Date/Time: [facility] 12-06-2022 Note ORIGINAL EXAMINATION: TWO XRAY VIEWS [...] Sign Date: 12/06/2022 9:32:09 PM Ordering Provider: [facility] 12-06-2022 Note ORIGINAL EXAMINATION: TWO XRAY [...] Sign Date: 12/06/2022 9:32:09 PM Ordering Provider: [facility] 09-01-2022 Note . MICRO - Microbiology PROCEDURE: Urine Culture [*1] SOURCE: Urine, Clean Catch BODY SITE: COLLECTED DATE/TIME: 08/30/2022 16:25 EDT RECEIVED DATE/TIME: 08/31/2022 15:44 EDT START DATE/TIME: 08/31/2022 15:44 EDT FREE TEXT SOURCE: FINAL REPORTS Final Report [] Verified Date/Time/Personnel: 09/01/2022 14:34 EDT <10,000 cfu/ml. No Significant growth. Sensitivity not indicated. Performing Locations *1: This test was performed at: [facility], [address] [place] [address], [facility] , [facility] 08-26-2022 Hospital Discharge instructions Patient Education 08/26/2022 [...] the smoke from others. You may use geif-sqz-kpxkcgi acetaminophen or ibuprofen for fever, muscle aching, [...] body and be dangerous to your health. Ovtk-dip-mlszvnh remedies won't shorten the length of the [...] or as directed by your healthcare provider [phone] [employer]. [address] [place] [address], [place] [address]. All rights reserved. This information is not intended as a substitute for professional medical care. Always follow your healthcare professional's instructions. Follow Up Care 08/26/2022 10:43:11 With:ALEXIS REICH Address: [address] [place] [address] [place] [address]- [phone] Business (1) When:2-4 days Comments:Schedule an appointment for close follow-up if your symptoms persist.Resume all routine home medications.Start with clear liquids and slowly advance her diet as tolerated.Use Zofran as prescribed for nausea and vomiting as needed.May use jpsr-zzy-qogycuy antidiarrheals like Imodium as needed.Use Tylenol, Advil or Aleve for fever and discomfort as needed.Return to the ED if symptoms worsen. [facility] 08-26-2022 Note Discharge Instructions Thank you for allowing [facility] to assist you with your healthcare needs. [...] nausea and vomiting as needed. May use prcf-cmq-jzmdlyb antidiarrheals like Imodium as needed. Use Tylenol, Advil or Aleve for fever and discomfort as needed. Return to the ED if symptoms worsen. Where: [address] [place] [address]- [phone] Business (1) Allergies Cardizem (Fatigue) DULoxetine (Fatigue, [...] Vitamin C 500 mg, Calcium 55 mg, [place] Bioflavonoid complex 10 mg Unchanged budesonide (budesonide [...] may report side effects to FDA at [phone]. What other drugs will affect ondansetron? Ondansetron [...] interact with ondansetron. This includes prescription and rtwe-tmo-iycdbdn medicines, vitamins, and herbal products. Give a [...] to ensure that the information provided by [employer]. ('[employer]') is accurate, up-to-date, and complete, but no guarantee is made to that effect. Drug information contained herein may be time sensitive. [employer] information has been compiled for use by healthcare practitioners and consumers in the [place] and therefore [employer] does not warrant that uses outside of the [place] are appropriate, unless specifically indicated otherwise. [employer] drug information does not endorse drugs, diagnose patients or recommend therapy. [employer] drug information is an informational resource designed [...] effective or appropriate for any given patient. [employer] does not assume any responsibility for any aspect of healthcare administered with the aid of information [facility] provides. The information contained herein is not intended to cover all possible uses, directions, precautions, warnings, drug interactions, allergic reactions, or adverse effects. If you have questions about the drugs you are taking, check with your doctor, nurse or pharmacist. Copyright 9022-9450 [employer]. Version: 13.01. Revision Date: 03/29/2016. Education Materials [...] the smoke from others. You may use llut-mop-ngmjcqr acetaminophen or ibuprofen for fever, muscle aching, [...] body and be dangerous to your health. Zsww-yed-jeyanex remedies won't shorten the length of the [...] or as directed by your healthcare provider [phone] [employer]. [address] [place] [address]. All rights reserved. This information is not intended as a substitute for professional medical care. Always follow your healthcare professional's instructions. Additional Information VACCINATE! IT SAVES LIVES! Members of the community who have not yet received the COVID-19 vaccine and would like to receive it can visit one of [facility] vaccine clinics. There are many vaccine clinic locations within the [facility]. For locations and available times, please visit [email or web address] It is important to note that some COVID mobile vaccine clinics are held outdoors and may be canceled in rainy or stormy conditions. To learn more about pediatric vaccinations (ages 5-11), we invite you to visit the [facility] webpage. [email or web address] [email or web address]-Kadtr-Usfuqcipuve-Freq [email or web address].html To learn more about the COVID-19 vaccine, we invite you to visit the CDC website for a list of frequently asked questions. https://www.cdc.gov/coronavirus/ 2019-ncov/vaccines/faq.html [facility] Patient Portal Access Instructions: Stay connected with your healthcare team and access your personal medical information anytime with the [employer] Patient Portal. If you would like a full copy of your medical records please contact the [facility] Medical Records Department Friday through Friday between 8a.m. and 4:30p.m. Please follow the directions below to access the portal: 1.Access the email account you provided upon registration to the [facility].2.Look for an invitation email from [facility].3.Open the email and access the invitation link: Accept Invitation to [facility]4.Fill in the required brian to create your account. Sign into [email or web address] with your username and password that you [...] you will allow to register on the [employer] Patient Portal for access to your information. You can also access the [employer] Patient Portal on the [employer] zachary. Simply click on Health Records under Health Data and then click on the [employer] logo. HOW TO SAFELY DISPOSE OF PRESCRIPTION [...] Call your local pharmacy or go to http://bit.[employer]/2B8Yb7u to find one close to you.3.Make use of household items: Use cat litter or old coffee grounds to dispose medications if other options are not available. Mix your drugs with these household products, seal them in an airtight container and throw it into the garbage. Call [facility]: [phone] to be sure your drugs can be [...] aware that I should contact my doctor. Patient/Bowling Ball Mold Assembler Signature: Date/Time: Relationship to Patient: Witness Name/Signature: Date/Time: [facility] 08-19-2022 HCoV 229E RNA JERMAIN+non-probe Ql (Nph) [...] Locations *1: This test was performed at: [facility], [address] [place] [address], [facility] , [facility] ([place]) 05-16-2022 HCoV 229E RNA JERMAIN+non-probe Ql (Nph) [...] Locations *1: This test was performed at: [address], [facility] , [facility] ([place]) 03-04-2022 Note . MICRO - Microbiology PROCEDURE: [...] Locations *1: This test was performed at: [address], [address] [place] [address] ([place]) 02-28-2022 Note . MICRO - Microbiology PROCEDURE: [...] Locations *1: This test was performed at: [address], [address] , [facility] ([place]) 02-28-2022 Note . MICRO - Microbiology PROCEDURE: [...] Locations *1: This test was performed at: [address], [address] , [facility] ([place]) 02-25-2022 SARS-CoV-2 (COVID-19) RNA JERMAIN+probe Ql (Nph) [...] Sign Date: 12/31/2021 4:26:11 PM Ordering Provider: [facility] 12-31-2021 Note ORIGINAL EXAMINATION: TWO XRAY VIEWS [...] Sign Date: 12/31/2021 4:26:11 PM Ordering Provider: [facility] 12-11-2021 Note ORIGINAL Images acquired, not reported on this accession number. [facility] 12-11-2021 Note ORIGINAL Images acquired, not reported on this accession number. [facility] 12-11-2021 Hospital Discharge instructions Patient Education 12/11/2021 [...] the bandage (dressing) after 24 hours. Take beyz-jkt-klqqkfk and prescription medicines only as told by your health care provider. Keep all follow-up visits as told by your health care provider. This is important. Contact a health care provider if: You have a fever. You continue to have pain and soreness around the injection site, even after taking xzbu-qvk-ngjjnyy pain medicine. You have severe, sudden, or [...] 09/10/2011 Document Revised: 05/08/2018 Document Reviewed: 09/10/2016 [employer] Patient Education 2020 [employer]. Follow Up Care 11/29/2021 08:24:01 With:NIKHIL SANDS MD Address: [address] [place] [address] [place] [address]- [phone] When: Unknown Comments:cALL dR. Sands WITH ANY QUESTIONS, GO to ED with any urgent issuesFollow-up as scheduled [facility] 12-11-2021 Summary of episode note Discharge Instructions Thank you for allowing [facility] to assist you with your healthcare needs. The following is important discharge information regarding your hospital visit. Your Care Team ALEXIS REICH John MD Your Diagnosis Epidural Injection What to do next Scheduled Follow-Up Appointments Appointment Type When With Where Contact InformationNS OV 12/13/2021 09:00 AM ELLEN BALDWIN MD, CRISTINA Rg Neurosurgery [address] [facility] [address] [place] [address] PM OV 12/25/2021 08:45 AM EDT NIKHIL SANDS MD [facility] OV 02/27/2022 10:30 AM EDT ALEXIS REICH DO [facility] Follow Up Appointments Follow Up with NIKHIL SANDS MD When Why: cALL dR. Sands WITH ANY QUESTIONS, GO to ED with any urgent issuesFollow-up as scheduled Where: [address] [facility] [address] [facility] [place] [address]- [phone] Allergies Cardizem (Fatigue) DULoxetine (palpitations, fatigue) Vicodin [...] the bandage (dressing) after 24 hours. Take hrvk-yse-glxsjzc and prescription medicines only as told by your health care provider. Keep all follow-up visits as told by your health care provider. This is important. Contact a health care provider if: You have a fever. You continue to have pain and soreness around the injection site, even after taking ygvb-kmw-ydnlfso pain medicine. You have severe, sudden, or [...] 09/10/2011 Document Revised: 05/08/2018 Document Reviewed: 09/10/2016 [employer] Patient Education 2020 RightScale. Additional Information VACCINATE! IT SAVES LIVES! Members of the community who have not yet received the COVID-19 vaccine and would like to receive it can visit one of [facility] vaccine clinics. There are many vaccine clinic locations within the [facility]. For locations and available times, please visit [email or web address] [email or web address] It is important to note that some COVID mobile vaccine clinics are held outdoors and may be canceled in rainy or stormy conditions. To learn more about pediatric vaccinations (ages 5-11), we invite you to visit the [facility] webpage. [email or web address]://[email or web address]/p [email or web address]-Ywdbe-Flqickrkbto-Freq lhxovm-Cuavp-Rioycivap.html To learn more about the COVID-19 vaccine, we invite you to visit the [employer] website for a list of frequently asked questions. [email or web address] [employer] Patient Portal Access Instructions: Stay connected with your healthcare team and access your personal medical information anytime with the [employer] Patient Portal.If you would like a full copy of your medical records, please contact the [facility] Medical Records Department, Friday through Friday between 8a.m. and 4:30p.m. Please follow the directions below to access the portal: 1.Access the email account you provided upon registration to the [facility].2.Look for an invitation email from [facility].3.Open the email and access the invitation link: Accept Invitation to [employer]4.Fill in the required brian to create your account. Sign into [email or web address] with your username and password that you [...] you will allow to register on the [employer] Patient Portal for access to your information. You can also access the [employer] Patient Portal on the [employer] zachary. Simply click on Health Records under Health Data and then click on the [employer] logo. HOW TO SAFELY DISPOSE OF PRESCRIPTION [...] Call your local pharmacy or go to http://[employer]/7Z4Yq6v to find one close to you.3.Make use of household items: Use cat litter or old coffee grounds to dispose medications if other options are not available. Mix your drugs with these household products, seal them in an airtight container and throw it into the garbage. Call [facility]: [phone] to be sure your drugs can be [...] aware that I should contact my doctor. 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 Digitally Signed by NIKHIL SANDS MD on 12/11/2021 07:28 AM [facility] 08-16-2021 Hospital Discharge instructions Patient Education 08/16/2021 [...] your ankles gets worse Dizziness or weakness [id number] [employer] [place] [address]. All rights reserved. This information is not intended as a substitute for professional medical care. Always follow your healthcare professional's instructions. Follow Up Care 08/16/2021 10:15:53 With:ALEXIS REICH DO Address: [phone] When:2-4 days [facility] Evaluation + Plan note Future Appointments Appointment Date:11/20/2021 10:30:00 AM Scheduled Provider:ALEXIS REICH DO Location:[facility] Appointment Type:PC OV Future Scheduled TestsXR Spine Lumbar W/Obliques 4 Views 07/18/21 [facility] Evaluation + Plan note Future Appointments Appointment Date:10/19/2021 11:00:00 AM Scheduled Provider:ALEXIS REICH DO Location:[facility] Appointment Type:PC OV Appointment Date:10/26/2021 10:00:00 AM Scheduled Provider:ALEXIS REICH DO Location:[facility] Appointment Type:PC OV Follow Up Appointment Date:11/20/2021 10:30:00 AM Scheduled Provider:ALEXIS REICH DO Location:[facility] Appointment Type:PC OV Future Scheduled TestsXR Spine Lumbar W/Obliques 4 Views 07/18/21 [facility] Evaluation + Plan note Future Appointments Appointment Date:11/20/2021 10:30:00 AM Scheduled Provider:ALEXIS REICH DO Location:[facility] Appointment Type:PC OV Appointment Date:12/13/2021 09:00:00 AM Scheduled Provider:CRISTINA BALDWIN MD Location:[facility] Appointment Type:NS OV Future Scheduled TestsXR Spine Lumbar W/Obliques 4 Views 07/18/21 [facility] Evaluation + Plan note Future Appointments Appointment Date:11/30/2021 07:30:00 AM Scheduled Provider: Location:[facility] Appointment Type:MA Mammogram Screening Bilateral w/ Zack Appointment Date:12/13/2021 09:00:00 AM Scheduled Provider:CRISTINA BALDWIN MD Location:[facility] Appointment Type:NS OV Appointment Date:12/25/2021 08:45:00 AM Scheduled Provider:NIKHIL SANDS MD Location:[facility] PM Appointment Type:PM OV Appointment Date:02/27/2022 10:30:00 AM Scheduled Provider:ALEXIS REICH DO Location:[facility] Appointment Type:PC OV Future Scheduled TestsRubella Antibody 11/20/21Mumps Antibody 11/20/21Rubeola IgG Antibody 11/20/21MA Mammo Screening Bilateral w/ Zack 11/30/21XR Spine Lumbar W/Obliques 4 Views 07/18/21 [facility] Evaluation + Plan note Future Appointments Appointment Date:12/11/2021 08:00:00 AM Scheduled Provider: Location:[facility] Appointment Type:PM Inj Spine L/S With Imaging Appointment Date:12/13/2021 09:00:00 AM Scheduled Provider:CRISTINA BALDWIN MD Location:[facility] Appointment Type:NS OV Appointment Date:12/25/2021 08:45:00 AM Scheduled Provider:NIKHIL SANDS MD Location:[facility] PM Appointment Type:PM OV Appointment Date:02/27/2022 10:30:00 AM Scheduled Provider:ALEXIS REICH DO Location:[facility] Appointment Type:PC OV Future Scheduled TestsRubella Antibody 6/14/22Mumps Antibody 6/14/22Rubeola IgG Antibody 6/14/22XR Spine Lumbar W/Obliques 4 Views 07/18/21 [facility] Evaluation + Plan note Future Appointments Appointment Date:12/13/2021 09:00:00 AM Scheduled Provider:CRISTINA BALDWIN MD Location:[facility] Appointment Type:NS OV Appointment Date:12/25/2021 08:45:00 AM Scheduled Provider:NIKHIL SANDS MD Location:[facility] PM Appointment Type:PM OV Appointment Date:02/27/2022 10:30:00 AM Scheduled Provider:ALEXIS REICH DO Location:[facility] Appointment Type:PC OV Future Scheduled TestsRubella Antibody 6/14/22Mumps Antibody 6/14/22Rubeola IgG Antibody 6/22XR Spine Lumbar W/Obliques 4 Views 07/18/21 [facility] Evaluation + Plan note Future Appointments Appointment Date:12/25/2021 08:45:00 AM Scheduled Provider:NIKHIL SANDS MD Location:[facility] PM Appointment Type:PM OV Appointment Date:02/27/2022 10:30:00 AM Scheduled Provider:ALEXIS REICH DO Location:[facility] Appointment Type:PC OV Future Scheduled TestsRubella Antibody 6/14/22Mumps Antibody 6/14/22Rubeola IgG Antibody 6//22XR Spine Lumbar W/Obliques 4 Views 07/18/21 [facility] Evaluation + Plan note Future Appointments Appointment Date:12/27/2021 01:00:00 PM Scheduled Provider:ALEXIS REICH DO Location:[facility] Appointment Type:PC OV Pre Op Appointment Date:02/27/2022 10:30:00 AM Scheduled Provider:ALEXIS REICH DO Location:[facility] Appointment Type:PC OV Future Scheduled TestsRubella Antibody 6/14/22Mumps Antibody 6/14/22Rubeola IgG Antibody 6/14/22XR Spine Lumbar W/Obliques 4 Views 07/18/21 [facility] Evaluation + Plan note Future Appointments Appointment Date:02/27/2022 10:30:00 AM Scheduled Provider:ALEXIS REICH DO [facility] Appoint[facility] Type:PC OV Future Scheduled TestsRubella Antibody 6/14/22Mumps Antibody 6/14/22Rubeola IgG Antibody 6/14/22XR Spine Lumbar W/Obliques 4 Views 07/18/21 [facility] Evaluation + Plan note Future Appointments Appointment Date:01/29/2022 10:00:00 AM Scheduled Provider:CRISTINA BALDWIN MD Location:[facility] Appointment Type:NS Post Op Appointment Date:02/27/2022 10:30:00 AM Scheduled Provider:ALEXIS REICH DO [facility] Appointment Type:PC OV Future Scheduled TestsRubella Antibody 6/14/22Mumps Antibody 6/14/22Rubeola IgG Antibody 6/14/22XR Spine Lumbar W/Obliques 4 Views 07/18/21 [facility] Evaluation + Plan note Future Appointments Appointment Date:03/06/2022 02:00:00 PM Scheduled Provider:ALEXIS REICH DO [facility] Appointment Type:PC OV Hospital Follow-Up Future Scheduled TestsRubella Antibody 6/14/22Mumps Antibody 6/14/22Rubeola IgG Antibody 6/14/22XR Spine Lumbar W/Obliques 4 Views 07/18/21 [facility] Evaluation + Plan note Future Appointments Appointment Date:04/03/2022 10:30:00 AM Scheduled Provider:ALEXIS REICH DO [facility] Appointment Type:PC OV Future Scheduled TestsRubella Antibody 6/14/22Mumps Antibody 6/14/22Rubeola IgG Antibody 6/14/22XR Spine Lumbar W/Obliques 4 Views 07/18/21 [facility] Evaluation + Plan note Future Appointments Appointment Date:11/01/2022 10:30:00 AM Scheduled Provider:ALEXIS REICH DO [facility] Appointment Type:PC Wellness Annual Future Scheduled TestsRubella Antibody 6/14/22Mumps Antibody 11/20/21Rubeola IgG Antibody 11/20/21XR Chest 2 Views (PA & Lateral) 04/18/22XR Spine Lumbar W/Obliques 4 Views 07/18/21 [facility] Evaluation + Plan note Future Appointments Appointment Date:11/01/2022 10:30:00 AM Scheduled Provider:ALEXIS REICH DO Location:[facility] Appointment Type:PC Wellness Annual Future Scheduled TestsRubella Antibody 11/20/21Mumps Antibody 11/20/21Rubeola IgG Antibody 11/20/21XR Chest 2 Views (PA & Lateral) 04/18/22 [facility] Evaluation + Plan note Future Appointments Appointment Date:02/28/2023 10:30:00 AM Scheduled Provider:ALEXIS REICH DO Location:[facility] Appointment Type:PC OV Future Scheduled TestsVitamin B12 Level 11/25/22A1C Hemoglobin 11/25/22Complete Blood Count 11/25/22Lipid Profile 11/25/22Vitamin D Level 11/25/22Complete Metabolic Panel 11/25/22MA Mammo Screening Bilateral w/ Zack 11/25/22XR Chest 2 Views (PA & Lateral) 04/18/22 [facility] Hospital course Narrative No data available for this section [facility] Discharge instructions No data available for this section [facility] Progress note No data available for this section [facility] Summary Purpose Family History No Family History Records Found No data available for this section No Family History Records Found Advance Directives No Advanced Directives Records FoundNo Advanced Directives Records Found Additional Source Comments INFORMATION SOURCE (unrecogn ized section and content) DATE CREATED AUTHOR AUTHOR'S ORGANIZ ATION 12/27/2022 [facility] ([place]) Care Team (unrecognized sect ion and content) Personnel Name: ALEXIS REICH DO Address: [address] [place] [address]- Personnel Name: ALEXIS REICH DO Address: [address] [place] [address]- Care Team Personnel Name: ALEXIS REICH DO Position: P4 Physician - Primary Care Member Role: Primary Care Physician Address: Address: [address] [place] [address]- Care Team Related Persons Name: ALENA OQUENDO Address: Home [address] [place], [place] [phone] Care Team Personnel Name: ALEXIS REICH DO Position: P4 Physician - Primary Care Member Role: Primary Care Physician Address: Address: [address] [place] [address]- Name: TARUN CAMARENA MD Position: ED Physician Member Role: ED Physician Address: Address: [address] [place] [address]- [place] Name: SAVITA Amaya Position: AO RN Member Role: ED RN Care Team Related Persons Name: ALENA OQUENDO Address: Home [address] [place], [place] [phone] Care Team Personnel Name: ALEXIS REICH DO Position: P4 Physician - Primary Care Member Role: Primary Care Physician Address: Address: [address] [place] [address]- Care Team Related Persons Name: ALENA OQUENDO Address: Home [address] [place], [place] [id number] Care Team Personnel Name: ALEXIS REICH DO Position: P4 Physician - Primary Care Member Role: Primary Care Physician Address: Address: [address] [place] [address]- [place] Name: Santy Veloz RN Position: AO RN Member Role: ED RN Name: MD FUNMI, MATT QUINTERO Position: ED Physician Member Role: ED Physician Address: Address: [address] [place] [address]- [place] Care Team Related Persons Name: ALENA OQUENDO Address: Home [address] [place], [place] [phone] Care Team Personnel Name: ALEXIS REICH DO Position: P4 Physician - Primary Care Member Role: Primary Care Physician Address: Address: [address] [place] [address]- Care Team Related Persons Name: ALENA OQUENDO Address: Home [address] [place], [place] [phone] Care Team (unrecognized sect ion and content) Personnel Name: ALEXIS REICH DO Address: Address: [address] [place] [address]- Personnel Name: ALEXIS REICH DO Address: Address: [address] [place] [address]- Care Team Personnel Name: ALEXIS REICH DO Position: P4 Physician - Primary Care Med Service: Active Provider Member Role: Primary Care Physician Address: Address: [address] [place] [address]- Care Team Related Persons Name: ALENA OQUENDO Address: Home [address] [place], [place] [phone] Care Team Personnel Name: ALEXIS REICH DO Position: P4 Physician - Primary Care Med Service: Active Provider Member Role: Primary Care Physician Address: Address: [address] [place] [address]- Care Team Related Persons Name: ALENA OQUENDO Address: Home [address] [place], [place] [phone] Care Team Personnel Name: ALEXIS REICH DO Position: P4 Physician - Primary Care Med Service: Active Provider Member Role: Primary Care Physician Address: Address: [address] [place] [address]- [place] Care Team Related Persons Name: ALENA OQUENDO Address: Home [address] [place], [place] [phone] Care Team Personnel Name: ALEXIS REICH DO Position: P4 Physician - Primary Care Med Service: Active Provider Member Role: Primary Care Physician Address: Address: [address] [place] [address]- [place] Care Team Related Persons Name: ALENA OQUENDO Address: [address] [place] [phone] Care Team Personnel Name: ALEXIS REICH DO Position: P4 Physician - Primary Care Med Service: Active Provider Member Role: Primary Care Physician Address: Address: [address] [place] [address]- Care Team Related Persons Name: ALENA OQUENDO Address: Home [address] [place] [phone] Care Team Personnel Name: ALEXIS REICH DO Position: P4 Physician - Primary Care Med Service: Active Provider Member Role: Primary Care Physician Address: Address: [address] [place] [address]- Care Team Related Persons Name: ALENA OQUENDO Address: Home [address] [place] [phone] Care Team Personnel Name: ALEXIS REICH DO Position: P4 Physician - Primary Care Med Service: Active Provider Member Role: Primary Care Physician Address: Address: [address] [place] [address]- [place] Care Team Related Persons Name: ALENA OQUENDO Address: Home [address] [place] [phone] Care Team Personnel Name: ALEXIS REICH DO Position: P4 Physician - Primary Care Member Role: Primary Care Physician Address: Address: [address] [place] [address]- [place] Care Team Related Persons Name: ALENA OQUENDO Address: Home [address] [place] [phone] Care Team Personnel Name: ALEXIS REICH DO Position: P4 Physician - Primary Care Med Service: Active Provider Member Role: Primary Care Physician Address: Address: [address] [place] [address]- Care Team Related Persons Name: ALENA OQUENDO Address: [address] [place] [phone] Care Team Personnel Name: ALEXIS REICH DO Position: P4 Physician - Primary Care Member Role: Primary Care Physician Address: Address: [address] Care Team Related Persons Name: ALENA OQUENDO Address: Home [address] [place], [place] [phone] Care Team Personnel Name: ALEXIS REICH DO Position: P4 Physician - Primary Care Member Role: Primary Care Physician Address: Address: [address] [place] [address] Care Team Related Persons Name: ALENA OQUENDO Address: Home [address] [place], [place] [phone] Care Team Personnel Name: ALEXIS REICH DO Position: P4 Physician - Primary Care Member Role: Primary Care Physician Address: Address: [address] [place] [address] Care Team Related Persons Name: ALENA OQUENDO Address: Home [address] [place], [place] [phone] Care Team Personnel Name: ALEXIS REICH DO Position: P4 Physician - Primary Care Member Role: Primary Care Physician Address: Address: [address] [place] [address] Care Team Related Persons Name: ALENA OQUENDO Address: Home [address] [place], [place] [phone] Care Team Personnel Name: ALEXIS REICH DO Position: P4 Physician - Primary Care Member Role: Primary Care Physician Address: Address: [address] [place] [address] Care Team Related Persons Name: ALENA OQUENDO Address: Home [address] [place], [place] [phone] FOR RECORDS PERTAINING TO PATIENTS WHO ARE [...] BE BASED ON THE PRIMARY CLINICAL RECORDS. [employer] [facility]. provides no warranty or guarantee of the accuracy or completeness of information in this document.
== END | disposition home or self-care (01) ==
LOC: LABSPEC 15:02
PROVIDERS: PCP Student in an Organized Health Care Education/Training Program; Referring Provider Otolaryngology; Visit Provider Otolaryngology
DX: C02.9 Malignant neoplasm of tongue, unspecified (principal)
CPT/HCPCS: 88305; 88312

== ENCOUNTER → 2023-12-09 | Outpatient (CLI) | payer OTHER, SELFPAY ==
--- NOTE | 2023-12-09 15:33 | CT_ITS ---
STUDY: CT FACIAL BONES WITHOUT CONTRAST REASON FOR EXAM: Female, 48 years old. CHRONIC SINUSITIS RADIATION DOSAGE (If Supplied By Facility): CTDIvol = ( 33.06 ) mGy, DLP = ( 837.98 ) mGycm TECHNIQUE: The patient was scanned in a multi detector CT scanner. Sagittal and coronal images were reconstructed. Individualized dose optimization techniques were used for this CT. COMPARISON: None. FINDINGS: Normal soft tissue structures. Normal orbital ray and orbital contents. Normal nasal bones and anterior nasal spine. Normal facial bones. There is no demonstrated fracture. Normal visualized paranasal sinuses. CT/Sinus/Facial Bone IMPRESSION: Normal unenhanced CT of the facial bones. Electronically Signed: Leon Lundberg MD at 17:38 EDT ,
== END | disposition home or self-care (01) ==
LOC: CT 15:32
PROVIDERS: PCP Student in an Organized Health Care Education/Training Program; Referring Provider Otolaryngology; Visit Provider Otolaryngology
DX: J32.8 Other chronic sinusitis (principal)
CPT/HCPCS: 70486